=== PATIENT | female | born 1930 | race Caucasian/White ===

== ENCOUNTER 2017-06-25 18:23 | Emergency (ER) | payer MEDICARE ==
--- NOTE | 2017-06-25 18:37 | ERPHSYRPT ---
- History of Present Illness Time Seen by Provider: 06/25/17 18:25 Source: patient, family (son Josemanuel), EMS, [facility] records Physician History: CC: altered mental status hx: 86 y/o patient from [facility]. She was last normal around 4:30PM. She was going to dining [place] but had an unresponsive spell. Taken back to room. May have been weak on one side. EMS noted improvement. Pt denies pain or headache. No fall or injury. No fever or chills. Allergies/Adverse Reactions: ciclopirox [From Loprox] Allergy (Unknown, Verified 06/25/17 19:07) ciclopirox olamine [From Loprox] Allergy (Unknown, Verified 06/25/17 19:07) morphine Allergy (Unknown, Verified 06/25/17 19:07) oxycodone [Oxycodone] Allergy (Unknown, Verified 06/25/17 19:07) Sulfa (Sulfonamide Antibiotics) [Sulfa(Sulfonamide Antibiotics)] Allergy ( Unknown, Verified 06/25/17 19:07) Band-aid Allergy (Unknown, Uncoded 06/25/17 19:07) Pentazocine Lactate Allergy (Unknown, Uncoded 06/25/17 19:07) Home Medications: Acetaminophen 325 mg [Tylenol 325 mg] 650 mg PO Q4HPRN PRN 07/16/16 [ History] Aspirin 81 mg PO DAILY 07/16/16 [History] Benzonatate [Tessalon Perle] 100 mg PO Q6HPRN PRN 07/16/16 [History] Calcium Carbonate/Vitamin D3 [Calcium 600-Vit D3 200 Tablet] 1 each PO BID 07/16 [History] Cyclobenzaprine HCl [Flexeril] 5 mg PO [id number] PRN 07/16/16 [History] Dabigatran Etexilate Mesylate [Pradaxa] 75 mg PO BID 07/16/16 [History] Furosemide 40 mg [Lasix 40 MG] 40 mg PO BID 07/16/16 [History] Hydrocodone Bit/Acetaminophen [[place] 5-325 Tablet] 1 each PO HS 07/16/16 [ History] Insulin Glargine [Lantus Insulin] 52 unit SQ HS 07/16/16 [History] Insulin Lispro [Humalog] 20 unit SQ AC 07/16/16 [History] Lisinopril 10 mg [Zestril 10 MG] 10 mg PO DAILY 07/16/16 [History] Loperamide HCl 2 mg [Imodium 2 mg] 2 mg PO Q4HPRN PRN 07/16/16 [History] Lorazepam 0.5 mg [Ativan 0.5 MG] 0.5 mg PO Q6HPRN PRN 07/16/16 [History] Magnesium Oxide 400 mg [Mag-Ox 400] 400 mg PO DAILY 07/16/16 [History] Memantine HCl [Namenda Xr] 28 mg PO DAILY 07/16/16 [History] Nitroglycerin 0.4 mg Tablet [Nitrostat 0.4 MG Tablet] 0.4 mg SL Q5MIN PRN MR X 3 PRN 07/16/16 [History] Ondansetron HCl [Zofran] 4 mg PO Q6HPRN PRN 07/16/16 [History] Potassium Chloride [K-Dur] 10 meq PO DAILY 07/16/16 [History] Promethazine HCl 25 mg Amp [Phenergan 25 MG INJ] 12.5 mg IM Q6HPRN PRN [History] Propylene Glycol/Peg 400/Pf [Systane Ultra 0.4-0.3% Eye Drp] 1 each OP Q4HPRN PRN 07/16/16 [History] Simvastatin [Zocor] 10 mg PO HS 07/16/16 [History] Vit C/E/Zn/Coppr/Lutein/Zeaxan [Preservision Areds 2 Softgel] 1 each PO BID [History] Levothyroxine Sodium 100 Mcg [Synthroid 100 Mcg] 100 mcg PO DAILY 06/25/17 [History] Magnesium Hydroxide 30 ml [Milk of Magnesia 30 ml] 30 ml PO DAILY PRN PRN 06/25/17 [History] Hx Tetanus, Diphtheria Vaccination/Date Given: No Hx Influenza Vaccination/Date Given: No Hx Pneumococcal Vaccination/Date Given: No - Review of Systems Constitutional: No Fever, No Chills Respiratory: No Cough Cardiac: No Chest Pain Abdominal/Gastrointestinal: Abdominal Pain (noted here), No Vomiting Skin: No Rash Neurological: Focal Weakness, No Headache All Other Systems: Unable due to condition - Past Medical History Pertinent Past Medical History: Yes Neurological History: Alzheimer's Disease, Dementia ENT History: Cataracts, Other Cardiac History: Angina, Arrhythmia, Congestive Heart Failure, High Cholesterol , Hypertension Respiratory History: Bronchitis Endocrine Medical History: Diabetes Type II, Hypothyroidism Musculoskeletal History: Other GI Medical History: Diverticulitis, Gallbladder Disease History: No Pertinent History Psycho-Social History: Anxiety Female Reproductive Disorders: Other Other Medical History: chronic pain - Past Surgical History Past Surgical History: Yes Neuro Surgical History: No Pertinent History Cardiac: Cardiac Catheterization, Cardiac Stent Respiratory: No Pertinent History Gastrointestinal: Cholecystectomy Genitourinary: No Pertinent History Musculoskeletal: Other Female Surgical History: Hysterectomy - Social History Smoking Status: Former smoker Exposure to second hand smoke: No Alcohol Use: None Drug Use: none Patient Lives Alone: No ([facility]) Significant Family History: heart disease, diabetes - Female History Hx Now: No - Nursing Vital Signs Nursing Vital Signs: Initial Vital Signs Temperature 98.1 F 06/25/17 18:23 Pulse Rate 79 06/25/17 18:23 Respiratory Rate 20 06/25/17 18:23 Blood Pressure 141/106 06/25/17 18:23 O2 Sat by Pulse Oximetry 97 06/25/17 18:23 Pain Scale Pain Intensity 0 - Physical Exam General Appearance: alert, obese, other (pleasant lady) Eye Exam: PERRL/EOMI Ears, Nose, Throat Exam: dry mucous membranes Neck Exam: supple Respiratory Exam: diminished breath sounds Cardiovascular Exam: irregular Gastrointestinal/Abdomen Exam: soft, tenderness (left abdomen with reproducible guarding) Extremity Exam: pedal edema Neurologic Exam: alert, cooperative, other (moves all 4 extremities but appears generally weak. Face has right droop. Tongue midline.) Skin Exam: warm, dry - Course Nursing assessment & vital signs reviewed: Yes EKG Interpreted by Me: RATE (77), A-fib, NORMAL AXIS, NORMAL INTERVALS (QTc 428) , Other (Poor R wave progression) - Radiology Exams cxr X-ray Interpretation: Reviewed by me (CM) - CT Exams abd/pelvis CT Interpretation: Tele-radiologist Report (no acute, lung nodule, age indeterminant L1 compression fx) head CT Interpretation: Tele-radiologist Report (no acute findings), No/Intracranial Hemorrhag Ordered Tests: Active Orders 24 hr Category Date Time Status Cath for Specimen-Straight STAT Care 06/25/17 18:26 Active EKG-ER Only STAT Care 06/25/17 18:26 Active IV Insertion STAT Care 06/25/17 18:26 Active NPO (ED) STAT Care 06/25/17 18:26 Active Rectal Temperature STAT Care 06/25/17 18:32 Active ABDOMEN AND PELVIS W/0 CONTRAS [CT] Stat Exams 06/25/17 18:25 Taken CHEST 1 VIEW (PORTABLE) Stat Exams 06/25/17 18:26 Taken HEAD WITHOUT CONTRAST [CT] Stat Exams 06/25/17 18:25 Taken BLOOD CULTURE Stat Lab 06/25/17 19:06 Received CBC W DIFF Stat Lab 06/25/17 19:06 Completed CMP Stat Lab 06/25/17 19:06 Completed LIPASE Stat Lab 06/25/17 19:06 Completed Lactic Acid Stat Lab 06/25/17 19:10 Results PROTIME WITH INR Stat Lab 06/25/17 19:06 Completed PTT Stat Lab 06/25/17 19:06 Completed TROPONIN Q3H Lab 06/25/17 19:06 Completed TROPONIN Q3H Lab 06/25/17 21:30 Ordered TROPONIN Q3H Lab 06/26/17 00:30 Ordered TROPONIN Q3H Lab 06/26/17 03:30 Ordered TROPONIN Q3H Lab 06/26/17 06:30 Ordered UA W/ MICROSCOPIC Stat Lab 06/25/17 18:50 Completed Lab/Rad Data: Laboratory Result Diagrams 06/25/17 19:06 06/25/17 19:06 Laboratory Results 06/25/17 06/25/17 06/25/17 Range/Units 19:10 19:06 19:06 WBC (4.0-10.5) K/mm3 RBC (4.1-5.4) M/mm3 Hgb (12.0-16.0) gm/dl Hct (35-47) % MCV (78-100) fl MCH (26-32) pg MCHC (32-36) g/dl RDW (11.5-14.0) % Plt Count (150-450) K/mm3 MPV (6-9.5) fl Gran % (36.0-66.0) % Lymphocytes % (24.0-44.0) % Monocytes % (0.0-12.0) % Eosinophils % (0.00-5.0) % Basophils % (0.0-0.4) % Basophils # (0-0.4) INR 1.33 (0.8-3.0) APTT 65.5 H (25.3-37.0) SECONDS Sodium (136-145) mEq/L Potassium (3.5-5.1) mEq/L Chloride (98-107) mEq/L Carbon Dioxide (21-32) mEq/L Anion Gap (5-15) MEQ/L BUN (9-20) mg/dL Creatinine (0.55-1.30) mg/dl Estimated GFR ML/MIN Glucose (70-110) MG/DL Lactic Acid 2.4 H (0.4-2.0) Calcium (8.5-10.1) mg/dL Total Bilirubin (0.2-1.0) mg/dL AST (15-37) U/L ALT (12-78) U/L Alkaline Phosphatase (46-116) U/L Troponin I < 0.017 (0.000-0.056) ng/ml Serum Total Protein (6.4-8.2) gm/dL Albumin (3.4-5.0) g/dL Lipase (73-393) U/L Ur Collection Type Urine Color (YELLOW) Urine Appearance (CLEAR) Urine pH (5-6) Ur Specific [place] (1.005-1.025) Urine Protein (Negative) Urine Ketones (NEGATIVE) Urine Blood (0-5) Newton/ul Urine Nitrite (NEGATIVE) Urine Bilirubin (NEGATIVE) Urine Urobilinogen (0-1) mg/dL Ur Leukocyte Esterase (NEGATIVE) Urine Microscopic WBC (0-5) /HPF Urine Bacteria (NEGATIVE) /HPF Urine Glucose (NEGATIVE) mg/dL Specimen Received 06/25/17 06/25/17 06/25/17 Range/Units 19:06 19:06 18:50 WBC 8.9 (4.0-10.5) K/mm3 RBC 4.29 (4.1-5.4) M/mm3 Hgb 12.8 (12.0-16.0) gm/dl Hct 40.3 (35-47) % MCV 93.9 (78-100) fl MCH 29.8 (26-32) pg MCHC 31.8 L (32-36) g/dl RDW 15.8 H (11.5-14.0) % Plt Count 192 (150-450) K/mm3 MPV 11.5 H (6-9.5) fl Gran % 51.8 (36.0-66.0) % Lymphocytes % 32.8 (24.0-44.0) % Monocytes % 11.2 (0.0-12.0) % Eosinophils % 4.0 (0.00-5.0) % Basophils % 0.2 (0.0-0.4) % Basophils # 0.02 (0-0.4) INR (0.8-3.0) APTT (25.3-37.0) SECONDS Sodium 142 (136-145) mEq/L Potassium 4.4 (3.5-5.1) mEq/L Chloride 104 (98-107) mEq/L Carbon Dioxide 29.9 (21-32) mEq/L Anion Gap 12.6 (5-15) MEQ/L BUN 25 H (9-20) mg/dL Creatinine 1.64 H (0.55-1.30) mg/dl Estimated GFR 32 ML/MIN Glucose 83 (70-110) MG/DL Lactic Acid (0.4-2.0) Calcium 10.2 H (8.5-10.1) mg/dL Total Bilirubin 0.30 (0.2-1.0) mg/dL AST 17 (15-37) U/L ALT 16 (12-78) U/L Alkaline Phosphatase 121 H (46-116) U/L Troponin I (0.000-0.056) ng/ml Serum Total Protein 7.7 (6.4-8.2) gm/dL Albumin 3.3 L (3.4-5.0) g/dL Lipase 71 L (73-393) U/L Ur Collection Type CATH Urine Color YELLOW (YELLOW) Urine Appearance SLIGHTLY CLOUDY (CLEAR) Urine pH 7.0 (5-6) Ur Specific [place] 1.010 (1.005-1.025) Urine Protein NEGATIVE (Negative) Urine Ketones NEGATIVE (NEGATIVE) Urine Blood NEGATIVE (0-5) Newton/ul Urine Nitrite NEGATIVE (NEGATIVE) Urine Bilirubin NEGATIVE (NEGATIVE) Urine Urobilinogen NORMAL (0-1) mg/dL Ur Leukocyte Esterase 1+ (NEGATIVE) Urine Microscopic WBC 0-2 (0-5) /HPF Urine Bacteria RARE (NEGATIVE) /HPF Urine Glucose NEGATIVE (NEGATIVE) mg/dL Specimen Received 06/25/17:1850 - Progress Progress Note: 06/25/17 18:36 She has prior TIA. She is on pradaxa so not a TPA candidate. Will get CT brain to rule out ICH. Will get CT abd as she has abd tenderness. Son aware of plan. 06/25/17 20:15 Afebrile. Visiting with son. Appears to be back to baseline. CAlled Dr Dias who advised return to [place] and neuro checks and will follow there. ?TIA Discussed with .: Heriberto Counseled pt/family regarding: lab results, diagnosis, need for follow-up, rad results - Departure Time of Disposition: 20:16 Departure Disposition: Extended Care Facility Clinical Impression: Unresponsive episode, TIA (transient ischemic attack), Left sided abdominal pain Condition: Stable Critical Care Time: No Referrals: SHWETA DAMICO [Primary Care Provider] - SAL DIAS MD [ACTIVE STAFF] - Instructions: Transient Ischemic Attack Additional Instructions: Neuro checks per protocol. Call Dr Dias for further orders. Fall precautions.
[2017-06-25 19:09] LABS: ADD URINE CULTURE? NO (NO); Bilirubin NEGATIVE (NEGATIVE); Blood NEGATIVE Ery/ul (0-5); COMPLETE URINE MICROSCOPIC? YES; Collection Type CATH; Glucose NEGATIVE (NEGATIVE); Leukocyte Esterase 1+ (NEGATIVE)
[2017-06-25 19:10] LABS: Bacteria RARE /HPF (NEGATIVE); WBC 0-2 /HPF (0-5)
[2017-06-25 19:16] LABS: BASOPHIL % 0.2 % (0.0-0.4); Granulocytes % 51.8 % (36.0-66.0); Lymphocytes % 32.8 % (24.0-44.0); Mean Cell Volume 93.9 fl (78-100); Mean Corpuscular Hemoglobin 29.8 pg (26-32); Mean Platelet Volume 11.5 fl (6-9.5); Monocytes % 11.2 % (0.0-12.0); Platelet Count 192 K/mm3 (150-450); Red Blood Count 4.29 M/mm3 (4.1-5.4); Red Cell Distribution Width 15.8 % (11.5-14.0); White Blood Count 8.9 K/mm3 (4.0-10.5)
[2017-06-25 19:18] LABS: Lactic Acid 2.4 (0.4-2.0)
[2017-06-25 19:27] LABS: INR 1.33 (0.8-3.0); PROTIME 15.1 SECONDS (9.95-12.35)
[2017-06-25 19:29] LABS: PTT 65.5 SECONDS (25.3-37.0)
[2017-06-25 19:34] LABS: ALBUMIN 3.3 g/dL (3.4-5.0); ANION GAP 12.6 MEQ/L (5-15); BILIRUBIN,TOTAL 0.3 mg/dL (0.2-1.0); Carbon Dioxide 29.9 mEq/L (21-32); Potassium 4.4 mEq/L (3.5-5.1); Total Protein 7.7 gm/dL (6.4-8.2)
[2017-06-25 20:51] VITALS: PULSE 80
[2017-06-25 21:23] VITALS: BP 125/82; O2SAT 95
--- NOTE | 2017-06-26 08:54 | XRAY ---
Exam: CT of the head without IV contrast from 06/25/2017. CTDI: 61.93 Comparison: CT of the head without IV contrast from 05/18/2012. Indication: Unresponsive spell, history of TIAs. Technique: Non-IV contrast axial images were obtained through the brain. Reconstructed coronal and sagittal images were created and reviewed. Findings: Mild motion artifact is seen. However, the exam is still diagnostic. The ventricles appear within normal limits of size for the patient's age. There is moderate prominence of the cortical sulci and fissures suggesting some generalized atrophy, not inappropriate for the patient's advanced age of 86 years. There is moderate patchy subcortical and periventricular decreased attenuation consistent with chronic microvascular disease. This appears similar to the prior study. I note a subtle round low-attenuation density at the upper posterior margin of the head of the caudate nucleus on the left on axial image #24. I believe it is likely this is partially seen on axial image #22 from 05/18/2012. A definite new low attenuation infarct is not seen. No acute intracranial bleed or abnormal extra-axial fluid collection is seen. No midline shift or focal mass effect is evident. No hyperdense MCA sign is seen. There is some deviation of the anterior aspect of the nasal septum toward the left. The visualized paranasal sinuses appear unremarkable. I note a small stable calcified osteoma within the upper medial aspect of the right frontal bone representing no change. The calvarium of the skull appears intact. Dense atherosclerotic vascular calcification is seen within both carotid siphons as well as the distal vertebral arteries. The visualized mastoid air cells reveal no significant abnormality. Minimal mucosal thickening is seen at the medial margin of the right mastoid air cells on axial image #9, but this is unchanged from axial image #7 on 05/18/2012. A tiny punctate calcification is seen within the right aspect of the cerebellar tentorium representing no change. Impression: 1. Moderate generalized atrophy and chronic small vessel ischemic disease, representing no change from 05/18/2012. 2. No acute intracranial bleed or other acute intracranial findings are seen as compared to 05/18/2012.
--- NOTE | 2017-06-26 09:57 | XRAY ---
Exam: CT of the abdomen and pelvis without IV contrast from 06/25/2017. CTDI: 12.11 Comparison: None. I do have a CTA of the chest from 01/19/2006. Indication: 86-year-old female with epigastric abdominal pain and abdominal tenderness. Technique: Non-IV contrast axial images were obtained through the abdomen and pelvis without IV contrast. Reconstructed coronal and sagittal images were created and reviewed. Findings: At the lung bases I note a pleural-based oval-shaped nodular density at the posterior medial left lung base on axial image #1. Therefore, this may only be partially imaged. On image #1 it measures about 10.5 mm in width and 0.7 cm in AP depth. I would recommend a conventional CT of the chest (preferably with IV contrast) to further assess this before follow-up recommendations are given. There is also some minimal scarring versus atelectasis at the anterior medial right lung base on axial image #1. The heart size appears mildly enlarged. Some coronary artery vascular calcification is seen. The patient's arms are down by her side with jewelry on her hands and about her right wrist which result in mild artifactual streaking. Assessment of the solid organs is limited without the use of IV contrast. The liver appears of unremarkable size and shape. 2 or 3 small granulomatous calcifications are seen within the liver. No obvious mass is seen, although assessment is limited because of the lack of IV contrast and the artifactual streaking from the patient's arms being down by her side with jewelry at this level. The gallbladder is not identified and is probably surgically absent or contracted. Correlate with prior surgical history. No biliary duct distention is seen. The spleen is of normal size and reveals no mass. Calcified splenic granulomas are seen. There is some diffuse fatty infiltration within the pancreas suggesting atrophy. The adrenal glands appear unremarkable. The kidneys are slightly small with the right kidney measuring about 8.7 cm in length and the left kidney measuring about 8.8 cm in length on the sagittal images. Otherwise, no definite renal mass, suspicious renal calculi, or hydronephrosis is seen. There is no free intraperitoneal air. I note a small fat-containing umbilical hernia on axial image #52. No bowel obstruction or definite bowel wall thickening is seen. Moderate atherosclerotic vascular calcification is seen within the abdominal aorta and iliac arteries. No abdominal aortic aneurysm or abnormal retroperitoneal lymphadenopathy is seen. Extensive atherosclerotic vascular calcification is seen within the splenic artery. The appendix is not definitely seen within the right lower quadrant, but no inflammatory findings are seen to suggest appendicitis. Again, correlate with prior surgical history. I see no findings of significant diverticulosis or diverticulitis within the colon. The uterus is anteflexed. There is a prominent calcification within the left uterine myometrium measuring 2.2 cm in greatest diameter consistent with a calcified uterine fibroid. No other pelvic mass, abnormal pelvic lymphadenopathy, or free intraperitoneal fluid is seen. The ureters are identified and reveal no abnormal distention or ureterolith. No urinary bladder stone is seen. The urinary bladder is mildly distended. Vascular calcification is seen within the iliac arteries and proximal femoral arteries. There is about a 50% anterior wedge fracture deformity of L1 which does not appear to have been present on the CT exam from 01/19/2006. However, the exact age is indeterminate. Vacuum disc phenomena is seen at T12-L1. There also moderate degenerative changes within the lower thoracic vertebral interspaces. I note grade 1 anterior spondylolisthesis of L4 over L5 with moderate L4-L5 degenerative disc disease and L4 laminectomy. Impression: 1. On axial image #1, a pleural-based nodule is seen at the posterior medial left lung base which measures 10.5 mm in width and 7 mm in AP depth. This may only be partially imaged. Therefore, further evaluation with a CT of the chest (preferably with IV contrast if possible) would be suggested before a final recommendation is given. I do not see this pleural-based nodule on the CT study from 01/19/2006. Therefore, I am concerned about interval development of a pleural-based lung mass. 2. No acute process is seen within the abdomen or pelvis. Specifically, I see no findings to explain the patient's upper abdominal pain and tenderness. The gallbladder is not seen and is either surgically absent or contracted. 3. 50% anterior wedge fracture deformity of L1 is new from 2005. However, its exact age is unknown. I also see evidence of grade 1 anterolisthesis of L4 over L5 with evidence of prior L4 laminectomy and moderate degenerative disc disease at L4-L5. 4. Other incidental findings as discussed above.
--- NOTE | 2017-06-26 16:04 | XRAY ---
Exam: AP portable chest film from 1930 hrs. on 06/25/2017. Comparison: AP upright portable chest film from 07/17/2016. Indication: Unresponsive episode. Findings: The heart size is slightly enlarged representing no change. Mild tortuosity of the descending thoracic aorta is seen. A couple small granulomatous calcifications overlie the left hilum. The remainder of the miguel ángel and mediastinal structures appears unremarkable. Prior airspace infiltrate at the right lung base has resolved. Currently, the lungs are adequately expanded and appear clear. No vascular congestion, pneumothorax, or pleural fluid is seen. No acute osseous process is seen. Impression: 1. Slight cardiomegaly without evidence of acute cardiac decompensation. This is unchanged. 2. No air space infiltrates or other active lung disease is seen.
== END 2017-06-25 21:22 ==
LOC: ED 18:23
DX: G45.9 Transient cerebral ischemic attack, unspecified (principal); R10.9 Unspecified abdominal pain; Z79.01 Long term (current) use of anticoagulants; Z79.4 Long term (current) use of insulin; Z79.899 Other long term (current) drug therapy; E11.9 Type 2 diabetes mellitus without complications
CPT/HCPCS: 99284; 36000; 93005; 87040; 81000; 85610; 85730; 36415; 83690; 85025; 80053; 84484; 71010; 70450; 74176; 83605; P9612

== ENCOUNTER 2018-02-10 12:11 | Inpatient (IN) | payer MEDICARE ==
[2018-02-10] MEDS ORDERED: Sodium Chloride 0.9% 1000 ML 1,000 ML IV STA (12:19)
--- NOTE | 2018-02-10 12:27 | ERPHSYRPT ---
- History of Present Illness Time Seen by Provider: 02/10/18 12:13 Source: EMS Exam Limitations: clinical condition Physician History: Pt was sent from local intermediate, she developed fever and low blood pressure this morning. She is alert but partly oriented, not lethargic, denies any complaints, but unable to give accurate history. She is not in severe distress no sign of difficulty breathing. Timing/Duration: today Fever Severity: moderate Fever Therapy VASCULAR PHYSICIAN: none Associated Symptoms: denies symptoms Allergies/Adverse Reactions: ciclopirox [From Loprox] Allergy (Unknown, Verified 02/10/18 12:26) ciclopirox olamine [From Loprox] Allergy (Unknown, Verified 02/10/18 12:26) morphine Allergy (Unknown, Verified 02/10/18 12:26) oxycodone [Oxycodone] Allergy (Unknown, Verified 02/10/18 12:26) Sulfa (Sulfonamide Antibiotics) [Sulfa(Sulfonamide Antibiotics)] Allergy ( Unknown, Verified 02/10/18 12:26) Band-aid Allergy (Unknown, Uncoded 06/25/17 19:07) Pentazocine Lactate Allergy (Unknown, Uncoded 06/25/17 19:07) Home Medications: Acetaminophen 325 mg [Tylenol 325 mg] 650 mg PO Q4HPRN PRN 07/16/16 [ History] Aspirin 81 mg PO DAILY 07/16/16 [History] Calcium Carbonate/Vitamin D3 [Calcium 600-Vit D3 200 Tablet] 1 each PO BID 07/16 [History] Dabigatran Etexilate Mesylate [Pradaxa] 75 mg PO BID 07/16/16 [History] Furosemide 40 mg [Lasix 40 MG] 40 mg PO BID 07/16/16 [History] Hydrocodone Bit/Acetaminophen [[place] 5-325 Tablet] 1 each PO HS 07/16/16 [ History] Insulin Glargine [Lantus Insulin] 60 unit SQ HS 07/16/16 [History] Insulin Lispro [Humalog] 20 unit SQ AC 07/16/16 [History] Lisinopril 10 mg [Zestril 10 MG] 10 mg PO DAILY 07/16/16 [History] Loperamide HCl 2 mg [Imodium 2 mg] 2 mg PO Q4HPRN PRN 07/16/16 [History] Magnesium Oxide 400 mg [Mag-Ox 400] 400 mg PO DAILY 07/16/16 [History] Memantine HCl [Namenda Xr] 28 mg PO DAILY 07/16/16 [History] Nitroglycerin 0.4 mg Tablet [Nitrostat 0.4 MG Tablet] 0.4 mg SL Q5MIN PRN MR X 3 PRN 07/16/16 [History] Ondansetron HCl [Zofran] 4 mg PO Q6HPRN PRN 07/16/16 [History] Potassium Chloride [K-Dur] 10 meq PO DAILY 07/16/16 [History] Promethazine HCl 25 mg Amp [Phenergan 25 MG INJ] 12.5 mg IM Q6HPRN PRN [History] Simvastatin [Zocor] 10 mg PO HS 07/16/16 [History] Levothyroxine Sodium 100 Mcg [Synthroid 100 Mcg] 100 mcg PO DAILY 06/25/17 [History] Magnesium Hydroxide 30 ml [Milk of Magnesia 30 ml] 30 ml PO DAILY PRN PRN 06/25/17 [History] Hydrocodone Bit/Acetaminophen [Hydrocodon-Acetaminophn 10-325] 1 each PO HS [History] Melatonin/Pyridoxine HCl (B6) [Melatonin 3 mg Tablet] 1 each PO HS 02/10/18 [ History] Hx Tetanus, Diphtheria Vaccination/Date Given: No Hx Influenza Vaccination/Date Given: No Hx Pneumococcal Vaccination/Date Given: No - Review of Systems Constitutional: Fever All Other Systems: Unable due to condition - Past Medical History Pertinent Past Medical History: Yes Neurological History: Alzheimer's Disease, Dementia ENT History: Cataracts, Other Cardiac History: Angina, Arrhythmia, Congestive Heart Failure, High Cholesterol , Hypertension Respiratory History: Bronchitis Endocrine Medical History: Diabetes Type II, Hypothyroidism Musculoskeletal History: Other GI Medical History: Diverticulitis, Gallbladder Disease History: No Pertinent History Psycho-Social History: Anxiety Female Reproductive Disorders: Other Other Medical History: chronic pain - Past Surgical History Past Surgical History: Yes Neuro Surgical History: No Pertinent History Cardiac: Cardiac Catheterization, Cardiac Stent Respiratory: No Pertinent History Gastrointestinal: Cholecystectomy Genitourinary: No Pertinent History Musculoskeletal: Other Female Surgical History: Hysterectomy - Social History Smoking Status: Former smoker Exposure to second hand smoke: No Alcohol Use: None Drug Use: none Patient Lives Alone: No ([facility]) Significant Family History: heart disease, diabetes - Nursing Vital Signs Nursing Vital Signs: Initial Vital Signs Temperature 97.3 F 02/10/18 12:12 Respiratory Rate 18 02/10/18 12:12 Pain Scale Pain Intensity 8 - Physical Exam General Appearance: no apparent distress, other (dry mouth) Eye Exam: eyes nml inspection Neck Exam: normal inspection, non-tender, supple, No JVD Respiratory Exam: normal breath sounds, chest non-tender, lungs clear Cardiovascular/Chest Exam: normal heart sounds, regular rate/rhythm, normal peripheral pulses, No murmur, No JVD Gastrointestinal/Abdominal Exam: soft, non tender, no distention, no mass, no guarding Extremity Exam: non-tender, no pedal edema Neurologic Exam: alert, normal mood/affect Skin Exam: normal color, warm, dry, No rash Lymphatic: No adenopathy SpO2 Interpretation: normal Oxygen Delivery: Room Air - Course Nursing assessment & vital signs reviewed: Yes EKG Interpreted by Me: RATE (77/min), NORMAL AXIS, Other (inverted T waves V2-6 ( new from 07/17/16)) - Radiology Exams Chest X-ray Interpretation: Interpreted by me, No Pneumonia, Other (Cardiomegaly) Ordered Tests: Active Orders 24 hr Category Date Time Status Accucheck STAT Care 02/10/18 12:19 Active Cath for Specimen-Straight STAT Care 02/10/18 12:21 Active EKG-ER Only STAT Care 02/10/18 12:19 Active IV Insertion STAT Care 02/10/18 12:19 Active CHEST 1 VIEW (PORTABLE) Stat Exams 02/10/18 12:20 Taken BLOOD CULTURE Stat Lab 02/10/18 12:45 Received CBC W DIFF Stat Lab 02/10/18 12:25 Completed CMP Routine Lab 02/10/18 12:25 Completed CULTURE,URINE Stat Lab 02/10/18 12:30 Received Lactic Acid Stat Lab 02/10/18 12:19 Results NT PRO BNP Routine Lab 02/10/18 12:25 Completed PROTIME WITH INR Stat Lab 02/10/18 12:25 Completed PTT Stat Lab 02/10/18 12:25 Completed TROPONIN Q3H Lab 02/10/18 12:25 Completed TROPONIN Q3H Lab 02/10/18 15:30 Ordered TROPONIN Q3H Lab 02/10/18 18:30 Ordered TROPONIN Q3H Lab 02/10/18 21:30 Ordered TROPONIN Q3H Lab 02/11/18 00:30 Ordered UA W/ MICROSCOPIC Stat Lab 02/10/18 12:30 Completed Medication Summary Discontinued Medications Generic Name Dose Route Start Last Admin Trade Name Coleq PRN Reason Stop Dose Admin Aspirin 325 mg 02/11/18 14:07 Ecotrin 325 Mg PO 02/11/18 14:08 NOW ONE Aspirin 324 mg 02/10/18 14:21 Baby Aspirin 81 Mg Chew PO 02/10/18 14:22 STAT ONE Sodium Chloride 1,000 mls @ 999 mls/hr 02/10/18 12:19 02/10/18 12:34 Sodium Chloride 0.9% 1000 Ml IV 02/10/18 13:19 999 mls/hr .Q1H1M STA Administration Sodium Chloride Confirm 02/10/18 12:33 Sodium Chloride 0.9% 1000 Ml Administered 02/10/18 12:34 Dose 1,000 mls @ ud .ROUTE .STK-MED ONE Ceftriaxone Sodium/Dextrose 1 g in 50 mls @ 100 mls/hr 02/10/18 13:44 14:03 Rocephin 1 Gm-D5w 50 Ml Bag IV 02/10/18 14:13 100 mls/hr STAT STA Administration Ceftriaxone Sodium/Dextrose Confirm 02/10/18 14:00 Rocephin 1 Gm-D5w 50 Ml Bag Administered 02/10/18 14:01 Dose 1 g in 50 mls @ ud IV .STK-MED ONE Ondansetron HCl 4 mg 02/10/18 14:12 02/10/18 14:15 Zofran 4 Mg/2 Ml Vial IV 02/10/18 14:13 4 mg STAT ONE Administration Ondansetron HCl Confirm 02/10/18 14:14 Zofran 4 Mg/2 Ml Vial Administered 02/10/18 14:15 Dose 4 mg .ROUTE .STK-MED ONE Lab/Rad Data: Laboratory Result Diagrams 02/10/18 12:25 02/10/18 12:25 Laboratory Results 02/10/18 02/10/18 02/10/18 Range/Units 12:45 12:30 12:25 WBC (4.0-10.5) K/mm3 RBC (4.1-5.4) M/mm3 Hgb (12.0-16.0) gm/dl Hct (35-47) % MCV (78-100) fl MCH (26-32) pg MCHC (32-36) g/dl RDW (11.5-14.0) % Plt Count (150-450) K/mm3 MPV (6-9.5) fl Gran % (36.0-66.0) % Eos # (Auto) (0-0.5) Absolute Lymphs (auto) (1.0-4.6) Absolute Monos (auto) (0.0-1.3) Lymphocytes % (24.0-44.0) % Monocytes % (0.0-12.0) % Eosinophils % (0.00-5.0) % Basophils % (0.0-0.4) % Absolute Granulocytes (1.4-6.9) Basophils # (0-0.4) PT (9.95-12.35) SECONDS INR (0.8-3.0) APTT (25.3-37.0) SECONDS Sodium 143 (137-145) mmol/L Potassium 4.8 (3.5-5.1) mmol/L Chloride 105 (98-107) mmol/L Carbon Dioxide 30 (22-30) mmol/L Anion Gap 13.1 (5-15) MEQ/L BUN 23 H (7-17) mg/dL Creatinine 1.41 H (0.52-1.04) mg/dL Estimated GFR 37.6 ML/MIN Glucose 75 (74-106) mg/dL Lactic Acid (0.4-2.0) Calcium 10.2 (8.4-10.2) mg/dL Total Bilirubin 0.40 (0.2-1.3) mg/dL AST 16 (14-36) U/L ALT 8 (0-35) U/L Alkaline Phosphatase 100 (38-126) U/L Troponin I 0.043 H* (0.000-0.034) ng/mL NT-Pro-B Natriuret Pep 1250 (0-1800) pg/mL Serum Total Protein 7.4 (6.3-8.2) g/dL Albumin 3.7 (3.5-5.0) g/dL Ur Collection Type CATH Urine Color YELLOW (YELLOW) Urine Appearance CLOUDY (CLEAR) Urine pH 7.0 (5-6) Ur Specific [place] 1.005 (1.005-1.025) Urine Protein NEGATIVE (Negative) Urine Ketones TRACE (NEGATIVE) Urine Blood 5-10 (0-5) [place]/ul Urine Nitrite NEGATIVE (NEGATIVE) Urine Bilirubin NEGATIVE (NEGATIVE) Urine Urobilinogen NORMAL (0-1) mg/dL Ur Leukocyte Esterase 2+ (NEGATIVE) Urine Microscopic RBC 2-5 (0-2) /HPF Urine Microscopic WBC 25-50 (0-5) /HPF Ur Epithelial Cells MODERATE (FEW) /HPF Urine Bacteria MANY (NEGATIVE) /HPF Urine Culture Reflexed YES (NO) Urine Glucose NEGATIVE (NEGATIVE) mg/dL Influenza Type A Ag NEGATIVE (NEGATIVE) Influenza Type B Ag NEGATIVE (NEGATIVE) RSV (PCR) NEGATIVE (Negative) Specimen Received 02/10/18 1211 02/10/18 02/10/18 02/10/18 Range/Units 12:25 12:25 12:19 WBC 9.0 (4.0-10.5) K/mm3 RBC 4.60 (4.1-5.4) M/mm3 Hgb 13.3 (12.0-16.0) gm/dl Hct 42.8 (35-47) % MCV 93.0 (78-100) fl MCH 28.9 (26-32) pg MCHC 31.1 L (32-36) g/dl RDW 16.2 H (11.5-14.0) % Plt Count 226 (150-450) K/mm3 MPV 12.0 H (6-9.5) fl Gran % 58.4 (36.0-66.0) % Eos # (Auto) 0.09 (0-0.5) Absolute Lymphs (auto) 2.79 (1.0-4.6) Absolute Monos (auto) 0.85 (0.0-1.3) Lymphocytes % 31.0 (24.0-44.0) % Monocytes % 9.4 (0.0-12.0) % Eosinophils % 1.0 (0.00-5.0) % Basophils % 0.2 (0.0-0.4) % Absolute Granulocytes 5.26 (1.4-6.9) Basophils # 0.02 (0-0.4) PT 18.0 H (9.95-12.35) SECONDS INR 1.61 (0.8-3.0) APTT 67.8 H (25.3-37.0) SECONDS Sodium (137-145) mmol/L Potassium (3.5-5.1) mmol/L Chloride (98-107) mmol/L Carbon Dioxide (22-30) mmol/L Anion Gap (5-15) MEQ/L BUN (7-17) mg/dL Creatinine (0.52-1.04) mg/dL Estimated GFR ML/MIN Glucose (74-106) mg/dL Lactic Acid 2.6 H (0.4-2.0) Calcium (8.4-10.2) mg/dL Total Bilirubin (0.2-1.3) mg/dL AST (14-36) U/L ALT (0-35) U/L Alkaline Phosphatase (38-126) U/L Troponin I (0.000-0.034) ng/mL NT-Pro-B Natriuret Pep (0-1800) pg/mL Serum Total Protein (6.3-8.2) g/dL Albumin (3.5-5.0) g/dL Ur Collection Type Urine Color (YELLOW) Urine Appearance (CLEAR) Urine pH (5-6) Ur Specific [place] (1.005-1.025) Urine Protein (Negative) Urine Ketones (NEGATIVE) Urine Blood (0-5) [place]/ul Urine Nitrite (NEGATIVE) Urine Bilirubin (NEGATIVE) Urine Urobilinogen (0-1) mg/dL Ur Leukocyte Esterase (NEGATIVE) Urine Microscopic RBC (0-2) /HPF Urine Microscopic WBC (0-5) /HPF Ur Epithelial Cells (FEW) /HPF Urine Bacteria (NEGATIVE) /HPF Urine Culture Reflexed (NO) Urine Glucose (NEGATIVE) mg/dL Influenza Type A Ag (NEGATIVE) Influenza Type B Ag (NEGATIVE) RSV (PCR) (Negative) Specimen Received - Progress Progress: improved Progress Note: 02/10/18 14:31 Pt has been afebrile, blood pressure improved after iv saline, Rocephine started , patient denies chest pain, no sign of SOB or distress, she is comfortable, her troponin is border line elevated, she is DNR, discussed with Dr Prince, informed about her results and current condition, she agreed to admit her as regular admission with UTI, elevated troponin, Aspirin given in ER. I informed her son and patient, they agreed to be admitted. Discussed with .: Niki Will see patient in: hospital (full admit) - Departure Time of Disposition: 14:33 Departure Disposition: In-patient Admission Clinical Impression: Elevated troponin UTI (urinary tract infection) Qualifiers: Urinary tract infection type: acute cystitis Hematuria presence: without hematuria Qualified Code(s): N30.00 - Acute cystitis without hematuria Condition: Stable Critical Care Time: No Referrals: SHWETA DAMICO [Primary Care Provider] -
[2018-02-10] MEDS ORDERED: Sodium Chloride 0.9% 1000 ML 1,000 ML ONE (12:33)
[2018-02-10 12:40] LABS: Lactic Acid 2.6 (0.4-2.0)
[2018-02-10 13:09] LABS: BASOPHIL % 0.2 % (0.0-0.4); Basophil (Absolute #) 0.02 (0-0.4); Eosinophil (Absolute #) 0.09 (0-0.5); Granulocyte Absolute (ANC) 5.26 (1.4-6.9); Granulocytes % 58.4 % (36.0-66.0); Hematocrit 42.8 % (35-47); Hemoglobin 13.3 gm/dl (12.0-16.0); Lymphocyte (Absolute #) 2.79 (1.0-4.6); Mean Corpuscular Hemoglobin 28.9 pg (26-32); Mean Corpuscular Hgb Concent. 31.1 g/dl (32-36); Monocyte (Absolute #) 0.85 (0.0-1.3); Monocytes % 9.4 % (0.0-12.0); Platelet Count 226 K/mm3 (150-450); Red Cell Distribution Width 16.2 % (11.5-14.0)
[2018-02-10 13:27] LABS: INR 1.61 (0.8-3.0)
[2018-02-10 13:30] LABS: PTT 67.8 SECONDS (25.3-37.0)
[2018-02-10 13:32] LABS: ALBUMIN 3.7 g/dL (3.5-5.0); ANION GAP 13.1 MEQ/L (5-15); BILIRUBIN,TOTAL 0.4 mg/dL (0.2-1.3); Calcium 10.2 mg/dL (8.4-10.2); Creatinine 1 1.41 mg/dL (0.52-1.04); Potassium 4.8 mmol/L (3.5-5.1); Total Protein 7.4 g/dL (6.3-8.2)
[2018-02-10 13:38] LABS: Appearance CLOUDY (CLEAR); Bilirubin NEGATIVE (NEGATIVE); Glucose NEGATIVE (NEGATIVE); Ketones TRACE (NEGATIVE); Leukocyte Esterase 2+ (NEGATIVE); Nitrite NEGATIVE (NEGATIVE); Protein,Urine Dip NEGATIVE (Negative); Specific Gravity 1.005 (1.005-1.025); Urobilinogen NORMAL mg/dL (0-1)
[2018-02-10 13:40] LABS: Bacteria MANY /HPF (NEGATIVE); Epithelial Cells MODERATE /HPF (FEW); WBC 25-50 /HPF (0-5)
[2018-02-10] MEDS ORDERED: ROCEPHIN 1 Gm-D5w 50 ml Bag** 1 G/50 ML IVPB IV STA (13:44)
[2018-02-10 13:46] LABS: TROPONIN 0.043 ng/mL (0.000-0.034)
[2018-02-10 13:54] LABS: INFLUENZA A NEGATIVE (NEGATIVE); INFLUENZA B NEGATIVE (NEGATIVE); RESPIRATORY SYNCTIAL VIRUS NEGATIVE (Negative)
[2018-02-10] MEDS ORDERED: ROCEPHIN 1 Gm-D5w 50 ml Bag** 1 G/50 ML IVPB IV ONE (14:00)
[2018-02-10] MEDS ORDERED: Zofran 4 MG/2 ML VIAL IV ONE (14:12)
[2018-02-10] MEDS ORDERED: Zofran 4 MG/2 ML VIAL ONE (14:14)
[2018-02-10] MEDS ORDERED: BABY ASPIRIN 81 MG CHEW PO ONE (14:21)
[2018-02-10] MEDS ORDERED: Zofran 4 MG/2 ML VIAL IV PRN (14:34)
[2018-02-10] MEDS ORDERED: Sodium Chloride 0.9% 1000 ML 1,000 ML IV SCH (14:45)
[2018-02-10] MEDS ORDERED: NON-FORMULARY ITEM (Ondansetron Hcl [Zofran] 4 MG) PO PRN (16:55)
[2018-02-10] MEDS ORDERED: IMODIUM 2 MG PO PRN (16:55)
[2018-02-10] MEDS ORDERED: TYLENOL 325 MG PO PRN (16:55)
[2018-02-10] MEDS ORDERED: NON-FORMULARY ITEM (Cyclobenzaprine Hcl [Flexeril] 5 MG) PO PRN (16:55)
[2018-02-10] MEDS ORDERED: Nitrostat 0.4 MG Tablet SL PRN (16:55)
[2018-02-10] MEDS ORDERED: MILK OF MAGNESIA 30 ML PO PRN (16:55)
[2018-02-10] MEDS ORDERED: ONDANSETRON ODT PO PRN (17:06)
[2018-02-10] MEDS ORDERED: Cyclobenzaprine 10 MG PO PRN (17:09)
[2018-02-10] MEDS: Sodium Chloride 0.9% 1000 ML 1,000 ML IV SCH (17:27)
[2018-02-10] MEDS ORDERED: Zosyn 3.375GM/100 Ml D5W 3.375 GM/100 ML IVPB IV SCH (18:00)
--- NOTE | 2018-02-10 19:41 | XRAY ---
Indication: Cough. Comparison: June 25, 2017. Portable chest again demonstrates cardiomegaly and left hilar calcified nodes. Vascularity normal. Lungs inflated and clear. Bony thorax intact again with osteopenia and degenerative changes. Impression: Stable nonacute chest with chronic features.
[2018-02-10] MEDS: PRADAXA 75 MG PO SCH (20:53)
[2018-02-10] MEDS: Namenda 5 MG PO SCH (20:54)
[2018-02-10] MEDS: Zocor 10MG PO SCH (20:54)
[2018-02-10] MEDS: Norco 10/325 MG Tablet PO SCH ×3 (20:55→22:04)
[2018-02-10] MEDS ORDERED: NON-FORMULARY ITEM (Memantine Hcl [Namenda] 10 MG) PO SCH (22:00)
[2018-02-10] MEDS: Lantus Insulin SQ SCH (22:08)
[2018-02-11] MEDS: Sodium Chloride 0.9% 1000 ML 1,000 ML IV SCH ×2 (04:47→22:31)
[2018-02-11 05:54] LABS: BASOPHIL % 0.4 % (0.0-0.4); Basophil (Absolute #) 0.03 (0-0.4); Eosinophil % 2.7 % (0.00-5.0); Granulocyte Absolute (ANC) 4.63 (1.4-6.9); Granulocytes % 61.5 % (36.0-66.0); Hematocrit 37.4 % (35-47); Hemoglobin 11.5 gm/dl (12.0-16.0); Lymphocyte (Absolute #) 1.81 (1.0-4.6); Lymphocytes % 24.1 % (24.0-44.0); Mean Cell Volume 95.4 fl (78-100); Mean Corpuscular Hemoglobin 29.3 pg (26-32); Mean Corpuscular Hgb Concent. 30.7 g/dl (32-36); Mean Platelet Volume 11.8 fl (6-9.5); Monocyte (Absolute #) 0.85 (0.0-1.3); Monocytes % 11.3 % (0.0-12.0); Platelet Count 193 K/mm3 (150-450); Red Blood Count 3.92 M/mm3 (4.1-5.4); Red Cell Distribution Width 16.2 % (11.5-14.0); White Blood Count 7.5 K/mm3 (4.0-10.5)
[2018-02-11 06:13] LABS: ANION GAP 10.7 MEQ/L (5-15); Calcium 9.7 mg/dL (8.4-10.2); Creatinine 1 1.21 mg/dL (0.52-1.04); Potassium 4.3 mmol/L (3.5-5.1)
--- NOTE | 2018-02-11 08:05 | PCM.HP ---
History of Present Illness - Chief Complaint Chief Complaint: UTI History of Present Illness: is a 87 year old female from a local [facility] who was sent in for fever and confusion, she is alert and conversant today. Denies any pain, just doesn't feel well but no specific complaints. - Review of Systems Constitutional: Fever, Weakness Respiratory: No Cough, No Short Of Breath Cardiac: No Chest Pain, No Edema, No Syncope Abdominal/Gastrointestinal: No Abdominal Pain, No Nausea, No Vomiting, No Diarrhea Genitourinary Symptoms: No Dysuria Skin: No Rash Medications & Allergies Home Medications: Home Medication List Acetaminophen 325 mg [Tylenol 325 mg] 650 mg PO Q4HPRN PRN 07/16/16 [ History Confirmed 02/10/18] Aspirin 81 mg PO DAILY 07/16/16 [History Confirmed 02/10/18] Calcium Carbonate/Vitamin D3 [Calcium 600-Vit D3 200 Tablet] 1 each PO BID 07/16 [History Confirmed 02/10/18] Dabigatran Etexilate Mesylate [Pradaxa] 75 mg PO BID 07/16/16 [History Confirmed 02/10/18] Furosemide 40 mg [Lasix 40 MG] 40 mg PO BID 07/16/16 [History Confirmed ] Hydrocodone Bit/Acetaminophen [[place] 5-325 Tablet] 1 each PO HS 07/16/16 [ History Confirmed 02/10/18] Insulin Glargine [Lantus Insulin] 60 unit SQ HS 07/16/16 [History Confirmed 02/10/18] Loperamide HCl 2 mg [Imodium 2 mg] 2 mg PO Q4HPRN PRN 07/16/16 [History Confirmed 02/10/18] Magnesium Oxide 400 mg [Mag-Ox 400] 400 mg PO DAILY 07/16/16 [History Confirmed 02/10/18] Nitroglycerin 0.4 mg Tablet [Nitrostat 0.4 MG Tablet] 0.4 mg SL Q5MIN PRN MR X 3 PRN 07/16/16 [History Confirmed 02/10/18] Ondansetron HCl [Zofran] 4 mg PO Q6HPRN PRN 07/16/16 [History Confirmed 02/10/18 ] Potassium Chloride [K-Dur] 10 meq PO DAILY 07/16/16 [History Confirmed 02/10/18] Promethazine HCl 25 mg Amp [Phenergan 25 MG INJ] 12.5 mg IM Q6HPRN PRN [History Confirmed 02/10/18] Simvastatin [Zocor] 10 mg PO HS 07/16/16 [History Confirmed 02/10/18] Diltiazem HCl [Diltiazem 24Hr ER] 120 mg PO DAILY #30 cap.er.24h 07/21/16 [Rx Confirmed 02/10/18] Levothyroxine Sodium 100 Mcg [Synthroid 100 Mcg] 100 mcg PO DAILY 06/25/17 [History Confirmed 02/10/18] Magnesium Hydroxide 30 ml [Milk of Magnesia 30 ml] 30 ml PO DAILY PRN PRN 06/25/17 [History Confirmed 02/10/18] Cyclobenzaprine HCl [Flexeril] 5 mg PO Q12H PRN 02/10/18 [History Confirmed ] Hydrocodone Bit/Acetaminophen [Hydrocodon-Acetaminophn 10-325] 1 each PO HS [History Confirmed 02/10/18] Lisinopril 5 mg [Zestril 5 MG] 2.5 mg PO DAILY 02/10/18 [History Confirmed 02/10/18] Melatonin/Pyridoxine HCl (B6) [Melatonin 3 mg Tablet] 1 each PO HS 02/10/18 [ History Confirmed 02/10/18] Memantine HCl [Namenda] 10 mg PO BID 02/10/18 [History Confirmed 02/10/18] Allergies/Adverse Reactions: Allergies Allergy/AdvReac Type Severity Reaction Status Date / Time ciclopirox [From Loprox] Allergy Unknown Verified 02/10/18 16:28 ciclopirox olamine Allergy Unknown Verified 02/10/18 16:28 [From Loprox] morphine Allergy Unknown Verified 02/10/18 16:28 oxycodone [Oxycodone] Allergy Unknown Verified 02/10/18 16:28 Sulfa (Sulfonamide Allergy Unknown Verified 02/10/18 16:28 Antibiotics) [Sulfa(Sulfonamide Antibiotics)] Band-aid Allergy Unknown Uncoded 02/10/18 16:28 Pentazocine Lactate Allergy Unknown Uncoded 02/10/18 16:28 - Past Medical History Past Medical History: Yes Neurological History: Alzheimer's Disease, Dementia ENT History: Cataracts, Other Cardiac History: Angina, Arrhythmia, Congestive Heart Failure, High Cholesterol , Hypertension Respiratory History: Bronchitis Endocrine Medical History: Diabetes Type II, Hypothyroidism Musculoskelatal History: Other GI Medical History: Diverticulitis, Gallbladder Disease History: No Pertinent History Pyscho-Social History: Anxiety Reproductive Disorders: Other Comment: chronic pain - Past Surgical History Past Surgical History: Yes Neuro Surgical History: No Pertinent History Cardiac History: Cardiac Catheterization, Cardiac Stent Respiratory Surgery: No Pertinent History GI Surgical History: Cholecystectomy Genitourinary Surgical Hx: No Pertinent History Musculskeletal Surgical Hx: Other Female Surgical History: Hysterectomy - Social History Smoking Status: Never smoker Exposure to second hand smoke: No Alcohol: None Drug Use: none Significant Family History: heart disease, diabetes - Physical Exam Vital Signs: Vital Signs - 24 hr Temp Pulse Resp BP Pulse Ox 02/11/18 07:00 98.2 F 85 18 123/59 94 L 02/11/18 03:00 97.9 F 73 16 129/58 95 02/10/18 23:08 97.8 F 93 H 20 99/57 95 02/10/18 19:40 98.2 F 88 20 110/53 98 02/10/18 15:23 98.7 F 93 H 128/57 02/10/18 15:22 98.7 F 92 H 20 128/57 93 L 02/10/18 15:20 98.7 F 92 H 20 128/57 93 L 02/10/18 14:17 80 20 122/63 98 02/10/18 13:50 97.3 F 84 18 118/68 99 02/10/18 12:35 84 16 98/67 98 02/10/18 12:12 97.3 F 18 General Appearance: no apparent distress Neurologic Exam: alert Eye Exam: PERRL/EOMI, eyes nml inspection Respiratory Exam: normal breath sounds, lungs clear, No respiratory distress Cardiovascular Exam: regular rate/rhythm, normal heart sounds, normal peripheral pulses Gastrointestinal/Abdomen Exam: soft, normal bowel sounds, No tenderness, No mass Extremity Exam: normal inspection, normal range of motion, pelvis stable Skin Exam: normal color, warm, dry, No rash Results - Labs Lab/Micro Results: Accuchecks Date 02/10/18 Accucheck Value: 76 Accucheck Value: 120 Lab Results-Last 24 Hours 02/10/18 02/10/18 02/10/18 Range/Units 15:30 18:45 21:45 WBC (4.0-10.5) K/mm3 RBC (4.1-5.4) M/mm3 Hgb (12.0-16.0) gm/dl Hct (35-47) % MCV (78-100) fl MCH (26-32) pg MCHC (32-36) g/dl RDW (11.5-14.0) % Plt Count (150-450) K/mm3 MPV (6-9.5) fl Gran % (36.0-66.0) % Eos # (Auto) (0-0.5) Absolute Lymphs (auto) (1.0-4.6) Absolute Monos (auto) (0.0-1.3) Lymphocytes % (24.0-44.0) % Monocytes % (0.0-12.0) % Eosinophils % (0.00-5.0) % Basophils % (0.0-0.4) % Absolute Granulocytes (1.4-6.9) Basophils # (0-0.4) Sodium (137-145) mmol/L Potassium (3.5-5.1) mmol/L Chloride (98-107) mmol/L Carbon Dioxide (22-30) mmol/L Anion Gap (5-15) MEQ/L BUN (7-17) mg/dL Creatinine (0.52-1.04) mg/dL Estimated GFR ML/MIN Glucose (74-106) mg/dL Calcium (8.4-10.2) mg/dL Troponin I 0.049 H* 0.049 H* 0.043 H* (0.000-0.034) ng/mL 02/11/18 02/11/18 02/11/18 Range/Units 00:50 05:17 05:17 WBC 7.5 (4.0-10.5) K/mm3 RBC 3.92 L (4.1-5.4) M/mm3 Hgb 11.5 L (12.0-16.0) gm/dl Hct 37.4 (35-47) % MCV 95.4 (78-100) fl MCH 29.3 (26-32) pg MCHC 30.7 L (32-36) g/dl RDW 16.2 H (11.5-14.0) % Plt Count 193 (150-450) K/mm3 MPV 11.8 H (6-9.5) fl Gran % 61.5 (36.0-66.0) % Eos # (Auto) 0.20 (0-0.5) Absolute Lymphs (auto) 1.81 (1.0-4.6) Absolute Monos (auto) 0.85 (0.0-1.3) Lymphocytes % 24.1 (24.0-44.0) % Monocytes % 11.3 (0.0-12.0) % Eosinophils % 2.7 (0.00-5.0) % Basophils % 0.4 (0.0-0.4) % Absolute Granulocytes 4.63 (1.4-6.9) Basophils # 0.03 (0-0.4) Sodium 143 (137-145) mmol/L Potassium 4.3 (3.5-5.1) mmol/L Chloride 107 (98-107) mmol/L Carbon Dioxide 29 (22-30) mmol/L Anion Gap 10.7 (5-15) MEQ/L BUN 22 H (7-17) mg/dL Creatinine 1.21 H (0.52-1.04) mg/dL Estimated GFR 44.8 ML/MIN Glucose 87 (74-106) mg/dL Calcium 9.7 (8.4-10.2) mg/dL Troponin I 0.046 H* (0.000-0.034) ng/mL Accuchecks Date 02/10/18 Accucheck Value: 76 Accucheck Value: 120 Assessment/Plan (1) UTI (urinary tract infection) Current Visit: Yes Status: Acute Qualifiers: Urinary tract infection type: acute cystitis Hematuria presence: without hematuria Qualified Code(s): N30.00 - Acute cystitis without hematuria Assessment & Plan: on rocephin, culture pending. afebrile since admission Code(s): N39.0 - URINARY TRACT INFECTION, SITE NOT SPECIFIED (2) Elevated troponin Current Visit: Yes Status: Acute Assessment & Plan: minimally elevated, no chest pain or dyspnea. patient is SCO, likely elevated secondary to renal insufficiency Code(s): R74.8 - ABNORMAL LEVELS OF OTHER SERUM ENZYMES (3) Altered mental status Current Visit: Yes Status: Acute Assessment & Plan: secondary to UTI Code(s): R41.82 - ALTERED MENTAL STATUS, UNSPECIFIED
[2018-02-11] MEDS: Cardizem CD 120 MG PO SCH (09:28)
[2018-02-11] MEDS: SYNTHROID 100 MCG PO SCH (09:28)
[2018-02-11] MEDS: Zestril 5 MG PO SCH (09:28)
[2018-02-11] MEDS: ROCEPHIN 1 Gm-D5w 50 ml Bag** 1 G/50 ML IVPB IV SCH (09:28)
[2018-02-11] MEDS: Namenda 5 MG PO SCH ×2 (09:28→21:18)
[2018-02-11] MEDS: PRADAXA 75 MG PO SCH ×2 (09:31→21:18)
[2018-02-11] MEDS: MAG-OX 400 PO SCH (09:31)
[2018-02-11] MEDS: ECOTRIN 81 MG PO SCH (09:31)
[2018-02-11] MEDS: Klor Con 10 MEQ PO SCH (09:31)
[2018-02-11] MEDS ORDERED: NON-FORMULARY ITEM (Potassium Chloride [K-Dur] 10 MEQ) PO SCH (10:00)
[2018-02-11] MEDS ORDERED: ENOXAPARIN SODIUM SQ SCH (10:00)
[2018-02-11] MEDS ORDERED: NON-FORMULARY ITEM (Aspirin [Aspirin] 81 MG) PO SCH (10:00)
[2018-02-11] MEDS ORDERED: Ecotrin 325 MG PO ONE (14:07)
[2018-02-11] MEDS: Zocor 10MG PO SCH (21:18)
[2018-02-11] MEDS: Lantus Insulin SQ SCH (21:20)
[2018-02-11] MEDS: Norco 10/325 MG Tablet PO SCH (22:29)
[2018-02-12 05:36] LABS: BASOPHIL % 0.4 % (0.0-0.4); Basophil (Absolute #) 0.03 (0-0.4); Eosinophil (Absolute #) 0.36 (0-0.5); Granulocyte Absolute (ANC) 4.04 (1.4-6.9); Granulocytes % 56.1 % (36.0-66.0); Lymphocyte (Absolute #) 1.88 (1.0-4.6); Lymphocytes % 26.1 % (24.0-44.0); Mean Cell Volume 94.6 fl (78-100); Mean Corpuscular Hemoglobin 29.7 pg (26-32); Mean Corpuscular Hgb Concent. 31.4 g/dl (32-36); Mean Platelet Volume 11.5 fl (6-9.5); Monocyte (Absolute #) 0.89 (0.0-1.3); Monocytes % 12.4 % (0.0-12.0); Platelet Count 182 K/mm3 (150-450); Red Cell Distribution Width 15.7 % (11.5-14.0); White Blood Count 7.2 K/mm3 (4.0-10.5)
[2018-02-12 05:57] LABS: ANION GAP 13.6 MEQ/L (5-15); Calcium 9.4 mg/dL (8.4-10.2); Creatinine 1 1.12 mg/dL (0.52-1.04); Potassium 4.4 mmol/L (3.5-5.1)
[2018-02-12] MEDS ORDERED: ZOFRAN ODT 4 MG PO PRN (08:12)
--- NOTE | 2018-02-12 08:44 | PCM.NOTE ---
Date and Time: 02/12/18 0840 Subjective Assessment: Pt not feeling great this morning due to nausea. - Review of Systems Constitutional: No Fever Abdominal/Gastrointestinal: Nausea Objective Exam General Appearance: mild distress, alert Neurologic Exam: cooperative, disoriented (not oriented to place or time) Skin Exam: normal color, warm, dry, No rash Ears, Nose, Throat Exam: moist mucous membranes Respiratory Exam: normal breath sounds, lungs clear, No crackles/rales, No rhonchi, No wheezing Cardiovascular Exam: regular rate/rhythm, normal heart sounds, No murmur Extremity Exam: No pedal edema, No swelling OBJECTIVE DATA Vital Signs: Vital Signs - 24 hr Temp Pulse Resp BP Pulse Ox 02/12/18 07:31 98.1 F 79 18 136/60 97 02/12/18 07:30 98.1 F 79 18 136/60 97 02/12/18 04:00 97.7 F 77 18 143/62 93 L 02/12/18 00:00 97.8 F 85 18 108/51 95 02/11/18 22:56 97.8 F 84 20 121/57 94 L 02/11/18 19:00 97.8 F 84 20 121/57 94 L 02/11/18 15:00 98.1 F 58 L 18 119/55 95 02/11/18 11:00 98.3 F 71 18 111/56 100 Pain Assessment - Last Documented Pain Intensity 3 Pain Scale Used 0-10 Pain Scale Intake and Output: Intake & Output 02/09/18 02/10/18 02/11/18 02/12/18 11:59 11:59 11:59 11:59 Intake Total 1290 2458 Balance 1290 2458 Weight 87.2 kg Lab Results: Accuchecks Date 02/12/18 Date 02/11/18 Date 02/11/18 Date 02/11/18 Time 07:30 Time 16:20 Time 11:20 Accucheck Value: 97 Accucheck Value: 249 Accucheck Value: 186 Accucheck Value: 165 Accucheck Value: 165 Lab Results-Last 24 Hours 02/12/18 02/12/18 Range/Units 04:00 04:00 WBC 7.2 (4.0-10.5) K/mm3 RBC 3.70 L (4.1-5.4) M/mm3 Hgb 11.0 L (12.0-16.0) gm/dl Hct 35.0 (35-47) % MCV 94.6 (78-100) fl MCH 29.7 (26-32) pg MCHC 31.4 L (32-36) g/dl RDW 15.7 H (11.5-14.0) % Plt Count 182 (150-450) K/mm3 MPV 11.5 H (6-9.5) fl Gran % 56.1 (36.0-66.0) % Eos # (Auto) 0.36 (0-0.5) Absolute Lymphs (auto) 1.88 (1.0-4.6) Absolute Monos (auto) 0.89 (0.0-1.3) Lymphocytes % 26.1 (24.0-44.0) % Monocytes % 12.4 H (0.0-12.0) % Eosinophils % 5.0 (0.00-5.0) % Basophils % 0.4 (0.0-0.4) % Absolute Granulocytes 4.04 (1.4-6.9) Basophils # 0.03 (0-0.4) Sodium 139 (137-145) mmol/L Potassium 4.4 (3.5-5.1) mmol/L Chloride 105 (98-107) mmol/L Carbon Dioxide 24 (22-30) mmol/L Anion Gap 13.6 (5-15) MEQ/L BUN 20 H (7-17) mg/dL Creatinine 1.12 H (0.52-1.04) mg/dL Estimated GFR 49.0 ML/MIN Glucose 129 H (74-106) mg/dL Calcium 9.4 (8.4-10.2) mg/dL Multi-Disciplinary Progress Notes: Multi-Disciplinary Progress Notes 02/11/18 10:20 Pharmacy Note by Marcellus Rosales Will discontinue Lovenox 40mg, patient has home med of Pradaxa. Initialized on 02/11/18 10:20 - END OF NOTE 02/11/18 09:30 (created 02/11/18 10:43) Case Management Note by Rose Cooper BELLY DANCER RESIDENT OF [facility]. DISCHARGE PLAN REVIEWED, PT/SON PLAN FOR PT TO RETURN TO [place] ON DISCHARGE. NO ADDNL NEEDS NOTED AT PRESENT. WILL FOLLOW. Initialized on 02/11/18 10:43 - END OF NOTE Assessment/Plan (1) UTI (urinary tract infection) Current Visit: Yes Status: Acute Onset Date: ~02/11/18 Qualifiers: Urinary tract infection type: acute cystitis Hematuria presence: without hematuria Qualified Code(s): N30.00 - Acute cystitis without hematuria Assessment & Plan: Still disoriented, will have RN give zofran for nausea. on IV rocephin, urine culture shows Providencia stuartii, is susceptible. Code(s): N39.0 - URINARY TRACT INFECTION, SITE NOT SPECIFIED (2) Altered mental status Current Visit: Yes Status: Acute Onset Date: ~02/11/18 Qualifiers: Altered mental status type: disorientation Qualified Code(s): R41.0 - Disorientation, unspecified Code(s): R41.82 - ALTERED MENTAL STATUS, UNSPECIFIED
[2018-02-12] MEDS: PRADAXA 75 MG PO SCH ×2 (09:17→22:10)
[2018-02-12] MEDS: Namenda 5 MG PO SCH ×2 (09:17→22:10)
[2018-02-12] MEDS: MAG-OX 400 PO SCH (09:17)
[2018-02-12] MEDS: ROCEPHIN 1 Gm-D5w 50 ml Bag** 1 G/50 ML IVPB IV SCH (09:17)
[2018-02-12] MEDS: Cardizem CD 120 MG PO SCH (09:17)
[2018-02-12] MEDS: Klor Con 10 MEQ PO SCH (09:18)
[2018-02-12] MEDS: SYNTHROID 100 MCG PO SCH (09:18)
[2018-02-12] MEDS: Zestril 5 MG PO SCH (09:18)
[2018-02-12] MEDS: ECOTRIN 81 MG PO SCH (09:18)
[2018-02-12] MEDS: Sodium Chloride 0.9% 1000 ML 1,000 ML IV SCH (20:12)
[2018-02-12] MEDS: Lantus Insulin SQ SCH (22:09)
[2018-02-12] MEDS: Norco 10/325 MG Tablet PO SCH (22:09)
[2018-02-12] MEDS: Zocor 10MG PO SCH (22:10)
[2018-02-13 05:54] LABS: BASOPHIL % 0.4 % (0.0-0.4); Basophil (Absolute #) 0.03 (0-0.4); Eosinophil % 3.2 % (0.00-5.0); Eosinophil (Absolute #) 0.23 (0-0.5); Granulocyte Absolute (ANC) 4.56 (1.4-6.9); Granulocytes % 62.6 % (36.0-66.0); Hemoglobin 10.5 gm/dl (12.0-16.0); Lymphocyte (Absolute #) 1.61 (1.0-4.6); Lymphocytes % 22.1 % (24.0-44.0); Mean Cell Volume 95.5 fl (78-100); Mean Corpuscular Hgb Concent. 30.9 g/dl (32-36); Mean Platelet Volume 12.1 fl (6-9.5); Monocyte (Absolute #) 0.85 (0.0-1.3); Monocytes % 11.7 % (0.0-12.0); Platelet Count 172 K/mm3 (150-450); Red Blood Count 3.56 M/mm3 (4.1-5.4); White Blood Count 7.3 K/mm3 (4.0-10.5)
[2018-02-13 05:59] LABS: Mean Corpuscular Hemoglobin 29.4 pg (26-32)
[2018-02-13 06:16] LABS: ANION GAP 13.7 MEQ/L (5-15); Calcium 9.6 mg/dL (8.4-10.2); Creatinine 1 1.16 mg/dL (0.52-1.04); Potassium 5.1 mmol/L (3.5-5.1)
[2018-02-13 07:35] VITALS: BP 122/57; PULSE 76; O2SAT 98
--- NOTE | 2018-02-13 09:04 | PCM.DS ---
Discharge Summary Date of Admission: 02/10/18 15:00 Admitting Physician: SHANNAN TRONCOSO Primary Care Provider: PEREZ Allergies Allergies ciclopirox [From Loprox] Allergy (Unknown, Verified 02/10/18 16:28) ciclopirox olamine [From Loprox] Allergy (Unknown, Verified 02/10/18 16:28) morphine Allergy (Unknown, Verified 02/10/18 16:28) oxycodone [Oxycodone] Allergy (Unknown, Verified 02/10/18 16:28) Sulfa (Sulfonamide Antibiotics) [Sulfa(Sulfonamide Antibiotics)] Allergy ( Unknown, Verified 02/10/18 16:28) Band-aid Allergy (Unknown, Uncoded 02/10/18 16:28) Pentazocine Lactate Allergy (Unknown, Uncoded 02/10/18 16:28) Hospital Summary - Hospital Course Hospital Course: patient was sent to ER from [facility] for fever and hypotension, she was confused but has some baseline dementia. found to have UTI, has been afebrile and vitals are good. she feels better at time of discharge, tolerating po intake and seems to be at her baseline cognitively - Vitals & Intake/Output Vital Signs: Vital Signs Temperature 98.6 F 02/13/18 07:34 Pulse Rate 76 02/13/18 07:34 Respiratory Rate 18 02/13/18 07:34 Blood Pressure 122/57 02/13/18 07:34 O2 Sat by Pulse Oximetry 98 02/13/18 07:34 Intake & Output: Intake & Output 02/10/18 02/11/18 02/12/18 02/13/18 11:59 11:59 11:59 11:59 Intake Total 1290 2638 1642 Balance 1290 2638 1642 Weight 87.2 kg 87.2 kg - Lab Result Diagrams: 02/13/18 05:30 02/13/18 05:30 Lab Results-Last 24 Hrs: Accuchecks Date 02/13/18 Date 02/12/18 Date 02/12/18 Date 02/12/18 Time 07:30 Time 17:18 Time 12:23 Accucheck Value: 157 Accucheck Value: 266 Accucheck Value: 172 Accucheck Value: 129 Lab Results-Last 24 Hours 02/13/18 02/13/18 Range/Units 05:30 05:30 WBC 7.3 (4.0-10.5) K/mm3 RBC 3.56 L (4.1-5.4) M/mm3 Hgb 10.5 L (12.0-16.0) gm/dl Hct 34.0 L (35-47) % MCV 95.5 (78-100) fl MCH 29.4 (26-32) pg MCHC 30.9 L (32-36) g/dl RDW 16.0 H (11.5-14.0) % Plt Count 172 (150-450) K/mm3 MPV 12.1 H (6-9.5) fl Gran % 62.6 (36.0-66.0) % Eos # (Auto) 0.23 (0-0.5) Absolute Lymphs (auto) 1.61 (1.0-4.6) Absolute Monos (auto) 0.85 (0.0-1.3) Lymphocytes % 22.1 L (24.0-44.0) % Monocytes % 11.7 (0.0-12.0) % Eosinophils % 3.2 (0.00-5.0) % Basophils % 0.4 (0.0-0.4) % Absolute Granulocytes 4.56 (1.4-6.9) Basophils # 0.03 (0-0.4) Sodium 139 (137-145) mmol/L Potassium 5.1 (3.5-5.1) mmol/L Chloride 105 (98-107) mmol/L Carbon Dioxide 26 (22-30) mmol/L Anion Gap 13.7 (5-15) MEQ/L BUN 19 H (7-17) mg/dL Creatinine 1.16 H (0.52-1.04) mg/dL Estimated GFR 47.1 ML/MIN Glucose 208 H (74-106) mg/dL Calcium 9.6 (8.4-10.2) mg/dL Micro Results-Entire Visit: Accuchecks Date 02/13/18 Date 02/12/18 Date 02/12/18 Date 02/12/18 Time 07:30 Time 17:18 Time 12:23 Accucheck Value: 157 Accucheck Value: 266 Accucheck Value: 172 Accucheck Value: 129 - Procedures and Test Procedures and Tests throughout Hospitalization: Therapy Orders & Screens 02/10/18 15:58 OT Screen per Nursing Assess ONCE Comment: Protocol Order Physician Instructions: Greater than 3 points order OT Admission Screening Reason For Exam: Triggered on Admission Diagnosis: UTI Open Wound/Cellutlitis/Pressure Ulcers: No Acute Fx/ORIF/Change in wt bearing status: No Severe MUSCULOSKELETAL pain: No ADL Dysfunction: Yes Acute CVA w/Hemiparesis/Hemiplegia: No Decreased Functional Mobility/Strength: Yes Sprain/Strain: No Acute Post-op Mobility Dysfunction: No Total Points: 4 PT Screen per Nursing Assess ONCE Comment: Protocol Order Physician Instructions: Greater than 3 points order PT Admission Screenin Reason For Exam: Triggered on Admission Diagnosis: UTI Open Wound/Cellutlitis/Pressure Ulcers: No Acute Fx/ORIF/Change in wt bearing status: No Severe MUSCULOSKELETAL pain: No ADL Dysfunction: Yes Acute CVA w/Hemiparesis/Hemiplegia: No Decreased Functional Mobility/Strength: Yes Sprain/Strain: No Acute Post-op Mobility Dysfunction: No Total Points: 4 Discharge Exam General Appearance: no apparent distress, alert Neurologic Exam: alert, cooperative Skin Exam: normal color, warm, dry Eye Exam: PERRL, EOMI, eyes nml inspection Respiratory Exam: normal breath sounds, lungs clear, No respiratory distress Cardiovascular Exam: regular rate/rhythm, normal heart sounds Gastrointestinal/Abdomen Exam: soft, No tenderness, No mass Extremity Exam: normal inspection, normal range of motion Final Diagnosis/Problem List - Final Discharge Diagnosis/Problem (1) UTI (urinary tract infection) Current Visit: Yes Status: Acute Onset Date: ~02/11/18 Assessment & Plan: will continue rocephin to complete a 7 days course (2) Elevated troponin Current Visit: Yes Status: Acute Onset Date: ~02/11/18 (3) Altered mental status Current Visit: Yes Status: Acute Onset Date: ~02/11/18 - Discharge Disposition: Skilled Care @ [facility] Condition: Stable Prescriptions: New Ceftriaxone 1 GM/50 ML PREMIX* [ROCEPHIN 1 Gm-D5w 50 ml Bag] 1 g IV Q24H10 #3 ivpb Continue Dabigatran Etexilate Mesylate [Pradaxa] 75 mg PO BID Furosemide 40 mg [Lasix 40 MG] 40 mg PO BID Calcium Carbonate/Vitamin D3 [Calcium 600-Vit D3 200 Tablet] 1 each PO BID Simvastatin [Zocor] 10 mg PO HS Hydrocodone Bit/Acetaminophen [[place] 5-325 Tablet] 1 each PO HS Potassium Chloride [K-Dur] 10 meq PO DAILY Magnesium Oxide 400 mg [Mag-Ox 400] 400 mg PO DAILY Aspirin 81 mg PO DAILY Insulin Glargine [Lantus Insulin] 60 unit SQ HS Promethazine HCl 25 mg Amp [Phenergan 25 MG INJ] 12.5 mg IM Q6HPRN PRN PRN Reason: Nausea/Vomiting Nitroglycerin 0.4 mg Tablet [Nitrostat 0.4 MG Tablet] 0.4 mg SL Q5MIN PRN MR X 3 PRN PRN Reason: Chest Pain Loperamide HCl 2 mg [Imodium 2 mg] 2 mg PO Q4HPRN PRN PRN Reason: Diarrhea Acetaminophen 325 mg [Tylenol 325 mg] 650 mg PO Q4HPRN PRN PRN Reason: Pain And/Or Fever Ondansetron HCl [Zofran] 4 mg PO Q6HPRN PRN PRN Reason: Nausea Diltiazem HCl [Diltiazem 24Hr ER] 120 mg PO DAILY #30 cap.er.24h Levothyroxine Sodium 100 Mcg [Synthroid 100 Mcg] 100 mcg PO DAILY Magnesium Hydroxide 30 ml [Milk of Magnesia 30 ml] 30 ml PO DAILY PRN PRN PRN Reason: Constipation Melatonin/Pyridoxine HCl (B6) [Melatonin 3 mg Tablet] 1 each PO HS Hydrocodone Bit/Acetaminophen [Hydrocodon-Acetaminophn 10-325] 1 each PO HS Memantine HCl [Namenda] 10 mg PO BID Lisinopril 5 mg [Zestril 5 MG] 2.5 mg PO DAILY Cyclobenzaprine HCl [Flexeril] 5 mg PO Q12H PRN PRN Reason: Pain Follow up with: SHWETA DAMICO [Primary Care Provider] - 1 Week SAL DIAS MD [Family Provider] - 1 Week
[2018-02-13] MEDS: ROCEPHIN 1 Gm-D5w 50 ml Bag** 1 G/50 ML IVPB IV SCH (09:05)
[2018-02-13] MEDS: SYNTHROID 100 MCG PO SCH (09:05)
[2018-02-13] MEDS: Zestril 5 MG PO SCH (09:05)
[2018-02-13] MEDS: Klor Con 10 MEQ PO SCH (09:05)
[2018-02-13] MEDS: Cardizem CD 120 MG PO SCH (09:05)
[2018-02-13] MEDS: PRADAXA 75 MG PO SCH (09:05)
[2018-02-13] MEDS: MAG-OX 400 PO SCH (09:06)
[2018-02-13] MEDS: Namenda 5 MG PO SCH (09:06)
[2018-02-13] MEDS: ECOTRIN 81 MG PO SCH (09:06)
== END 2018-02-13 11:15 | DRG 690 ==
LOC: ED 12:11 → MED SURG 15:00
PROVIDERS: ADMIT Family Medicine; ATTEND Family Medicine
DX: N39.0 Urinary tract infection, site not specified (principal); R79.89 Other specified abnormal findings of blood chemistry; R41.82 Altered mental status, unspecified; N30.00 Acute cystitis without hematuria; G30.9 Alzheimer's disease, unspecified; F02.80 Dementia in other diseases classified elsewhere, unspecified severity, without behavioral disturbance, psychotic disturbance, mood disturbance, and anxiety; I50.9 Heart failure, unspecified; I10 Essential (primary) hypertension; E78.00 Pure hypercholesterolemia, unspecified; E11.9 Type 2 diabetes mellitus without complications; Z79.4 Long term (current) use of insulin; E03.9 Hypothyroidism, unspecified; F41.9 Anxiety disorder, unspecified; Z87.891 Personal history of nicotine dependence; Z79.01 Long term (current) use of anticoagulants; Z79.899 Other long term (current) drug therapy
CPT/HCPCS: 36000; 36415; 71045; 80048; 80053; 81000; 82962; 83605; 83880; 84484; 85025; 85610; 85730; 87040; 87077; 87086; 87186; 87631; 93005; 96360; 96365; 96375; 99285; P9612; 96374; J0696; J1650; J2405; Q0162; A9270-GY

== ENCOUNTER 2019-02-25 12:36 | Observation (INO) | payer MEDICARE ==
[2019-02-25] MEDS ORDERED: Sodium Chloride 0.9% 1000 ML 1,000 ML ONE (12:48)
--- NOTE | 2019-02-25 12:48 | ERPHSYRPT ---
- History of Present Illness Time Seen by Provider: 02/25/19 12:45 Source: patient Physician History: [facility] pt w/ constant right facial droop and right side weakness today at 12:30pm found, last seen normal at 9am, no injury, poor historian Allergies/Adverse Reactions: ciclopirox [From Loprox] Allergy (Unknown, Verified 02/10/18 16:28) ciclopirox olamine [From Loprox] Allergy (Unknown, Verified 02/10/18 16:28) morphine Allergy (Unknown, Verified 02/10/18 16:28) oxycodone [Oxycodone] Allergy (Unknown, Verified 02/10/18 16:28) Sulfa (Sulfonamide Antibiotics) [Sulfa(Sulfonamide Antibiotics)] Allergy ( Unknown, Verified 02/10/18 16:28) Band-aid Allergy (Unknown, Uncoded 02/10/18 16:28) Pentazocine Lactate Allergy (Unknown, Uncoded 02/10/18 16:28) Home Medications: Acetaminophen 325 mg [Tylenol 325 mg] 650 mg PO Q4HPRN PRN 07/16/16 [ History] Aspirin 81 mg PO DAILY 07/16/16 [History] Calcium Carbonate/Vitamin D3 [Calcium 600-Vit D3 200 Tablet] 1 each PO BID 07/16 [History] Dabigatran Etexilate Mesylate [Pradaxa] 75 mg PO BID 07/16/16 [History] Furosemide 40 mg [Lasix 40 MG] 40 mg PO BID 07/16/16 [History] Hydrocodone Bit/Acetaminophen [[place] 5-325 Tablet] 1 each PO HS 07/16/16 [ History] Insulin Glargine [Lantus Insulin] 60 unit SQ HS 07/16/16 [History] Loperamide HCl 2 mg [Imodium 2 mg] 2 mg PO Q4HPRN PRN 07/16/16 [History] Magnesium Oxide 400 mg [Mag-Ox 400] 400 mg PO DAILY 07/16/16 [History] Nitroglycerin 0.4 mg Tablet [Nitrostat 0.4 MG Tablet] 0.4 mg SL Q5MIN PRN MR X 3 PRN 07/16/16 [History] Ondansetron HCl [Zofran] 4 mg PO Q6HPRN PRN 07/16/16 [History] Potassium Chloride [K-Dur] 10 meq PO DAILY 07/16/16 [History] Promethazine HCl 25 mg Amp [Phenergan 25 MG INJ] 12.5 mg IM Q6HPRN PRN [History] Simvastatin [Zocor] 10 mg PO HS 07/16/16 [History] Levothyroxine Sodium 100 Mcg [Synthroid 100 Mcg] 100 mcg PO DAILY 06/25/17 [History] Magnesium Hydroxide 30 ml [Milk of Magnesia 30 ml] 30 ml PO DAILY PRN PRN 06/25/17 [History] Cyclobenzaprine HCl [Flexeril] 5 mg PO Q12H PRN 02/10/18 [History] Hydrocodone Bit/Acetaminophen [Hydrocodon-Acetaminophn 10-325] 1 each PO HS [History] Lisinopril 5 mg [Zestril 5 MG] 2.5 mg PO DAILY 02/10/18 [History] Melatonin/Pyridoxine HCl (B6) [Melatonin 3 mg Tablet] 1 each PO HS 02/10/18 [ History] Memantine HCl [Namenda] 10 mg PO BID 02/10/18 [History] Hx Tetanus, Diphtheria Vaccination/Date Given: No Hx Influenza Vaccination/Date Given: No Hx Pneumococcal Vaccination/Date Given: No - Review of Systems Constitutional: No Fever Eyes: No Eye Redness Ears, Nose, & Throat: No Epistaxis Respiratory: No Dyspnea Cardiac: No Chest Pain Abdominal/Gastrointestinal: No Abdominal Pain Genitourinary Symptoms: No Incontinence Musculoskeletal: No Back Pain, No Neck Pain Skin: No Rash Neurological: Focal Weakness, No Headache - Past Medical History Pertinent Past Medical History: Yes Neurological History: Alzheimer's Disease, Dementia ENT History: Cataracts, Other Cardiac History: Angina, Arrhythmia, Congestive Heart Failure, High Cholesterol , Hypertension Respiratory History: Bronchitis Endocrine Medical History: Diabetes Type II, Hypothyroidism Musculoskeletal History: Other GI Medical History: Diverticulitis, Gallbladder Disease History: No Pertinent History Psycho-Social History: Anxiety Female Reproductive Disorders: Other Other Medical History: chronic pain - Past Surgical History Past Surgical History: Yes Neuro Surgical History: No Pertinent History Cardiac: Cardiac Catheterization, Cardiac Stent Respiratory: No Pertinent History Gastrointestinal: Cholecystectomy Genitourinary: No Pertinent History Musculoskeletal: Other Female Surgical History: Hysterectomy - Social History Smoking Status: Never smoker Exposure to second hand smoke: No Alcohol Use: None Drug Use: none Patient Lives Alone: No ([facility]) Significant Family History: heart disease, diabetes - Nursing Vital Signs Nursing Vital Signs: Initial Vital Signs Temperature 98.0 F 02/25/19 12:37 Pulse Rate 82 02/25/19 12:37 Respiratory Rate 16 02/25/19 12:37 Blood Pressure 155/75 02/25/19 12:37 O2 Sat by Pulse Oximetry 100 02/25/19 12:37 Pain Scale Pain Intensity 0 - Physical Exam General Appearance: no apparent distress Eye Exam: PERRL/EOMI, eyes nml inspection Ears, Nose, Throat Exam: moist mucous membranes Neck Exam: No meningismus Respiratory Exam: lungs clear, No respiratory distress Cardiovascular Exam: regular rate/rhythm Gastrointestinal/Abdomen Exam: soft, No tenderness Extremity Exam: No contusions Neurologic Exam: alert, cooperative, normal mood/affect, other (decreased right griip, right facial droop) Skin Exam: warm, dry - Course Nursing assessment & vital signs reviewed: Yes EKG Interpreted by Me: Sinus Rhythm, Other (no stemi) - Radiology Exams Chest X-ray Interpretation: Discussed w/ radiologist, Negative - CT Exams Head CT Interpretation: Negative, Discussed w/radiologist Ordered Tests: Active Orders 24 hr Category Date Time Status Nanotechnology Engineering Technologist STAT Care 02/25/19 12:43 Active Catheter-[place] Desir STAT Care 02/25/19 12:42 Active EKG-ER Only STAT Care 02/25/19 12:42 Active IV Insertion STAT Care 02/25/19 12:42 Active NPO (ED) STAT Care 02/25/19 12:43 Active CHEST 1 VIEW (PORTABLE) Stat Exams 02/25/19 12:43 Completed HEAD WITHOUT CONTRAST [CT] Stat Exams 02/25/19 12:43 Completed CBC W DIFF Stat Lab 02/25/19 13:00 Completed CMP Stat Lab 02/25/19 13:00 Completed PROTIME WITH INR Stat Lab 02/25/19 13:00 Completed PTT Stat Lab 02/25/19 13:00 Completed Transfer Order Routine Transfer 02/25/19 Ordered Medication Summary Discontinued Medications Generic Name Dose Route Start Last Admin Trade Name Krystina PRN Reason Stop Dose Admin Aspirin 324 mg 02/25/19 14:31 Baby Aspirin 81 Mg Chew PO 02/25/19 14:32 STAT ONE Sodium Chloride 1,000 mls @ 999 mls/hr 02/25/19 12:42 02/25/19 14:09 Sodium Chloride 0.9% 1000 Ml IV 02/25/19 13:42 Not Given .Q1H1M STA Sodium Chloride Confirm 02/25/19 12:48 Sodium Chloride 0.9% 1000 Ml Administered 02/25/19 12:49 Dose 1,000 mls @ ud .ROUTE .STK-MED ONE Lab/Rad Data: Laboratory Result Diagrams 02/25/19 13:00 02/25/19 13:00 Laboratory Results 02/25/19 02/25/19 02/25/19 Range/Units 13:00 13:00 13:00 WBC 9.6 (4.0-10.5) K/mm3 RBC 4.06 L (4.1-5.4) M/mm3 Hgb 12.0 (12.0-16.0) gm/dl Hct 38.3 (35-47) % MCV 94.3 (78-100) fl MCH 29.5 (26-32) pg MCHC 31.3 L (32-36) g/dl RDW 16.6 H (11.5-14.0) % Plt Count 196 (150-450) K/mm3 MPV 11.7 H (6-9.5) fl Gran % 66.5 H (36.0-66.0) % Eos # (Auto) 0.21 (0-0.5) Absolute Lymphs (auto) 2.25 (1.0-4.6) Absolute Monos (auto) 0.73 (0.0-1.3) Lymphocytes % 23.4 L (24.0-44.0) % Monocytes % 7.6 (0.0-12.0) % Eosinophils % 2.2 (0.00-5.0) % Basophils % 0.3 (0.0-0.4) % Absolute Granulocytes 6.41 (1.4-6.9) Basophils # 0.03 (0-0.4) PT 21.7 H (9.95-12.35) SECONDS INR 1.85 (0.8-3.0) APTT 41.5 H (25.3-37.0) SECONDS Sodium 141 (137-145) mmol/L Potassium 4.2 (3.5-5.1) mmol/L Chloride 101 (98-107) mmol/L Carbon Dioxide 31 H (22-30) mmol/L Anion Gap 13.9 (5-15) MEQ/L BUN 28 H (7-17) mg/dL Creatinine 1.26 H (0.52-1.04) mg/dL Estimated GFR 42.7 ML/MIN Glucose 124 H (74-106) mg/dL Calcium 10.3 H (8.4-10.2) mg/dL Total Bilirubin 0.30 (0.2-1.3) mg/dL AST 20 (14-36) U/L ALT 13 (0-35) U/L Alkaline Phosphatase 95 (38-126) U/L Serum Total Protein 8.0 (6.3-8.2) g/dL Albumin 4.0 (3.5-5.0) g/dL - Progress Progress: improved Progress Note: 02/25/19 14:34 d/w teleneurology Dr Larson, rec aspirin, mri, admission, admit d/w Dr Prince Discussed with : Niki Will see patient in: hospital (observation) Counseled pt/family regarding: lab results, diagnosis, rad results - Departure Departure Disposition: Observation Clinical Impression: TIA (transient ischemic attack) Condition: Stable Critical Care Time: No Referrals: SHWETA DAMICO [Primary Care Provider] - Instructions: Transient Ischemic Attack (DC)
[2019-02-25] MEDS: Sodium Chloride 0.9% 1000 ML 1,000 ML IV STA ×2 (12:52→14:09)
--- NOTE | 2019-02-25 13:06 | XRAY ---
Indication: Acute CVA. Comparison: February 10, 2019. Portable apical lordotic chest remains clear. Heart is not enlarged for AP portable technique. Bony thorax intact again with osteopenia, degenerative changes, and scoliosis. Impression: Stable nonacute chest with chronic features.
--- NOTE | 2019-02-25 13:10 | XRAY ---
Indication: Acute CVA. Multiple contiguous axial images obtained through the head without contrast. Comparison: June 25, 2017. Stable age-appropriate global atrophy, moderate periventricular degenerative micro-ischemia bilaterally, and remote right thalamic lacunar infarct. No acute intracranial hemorrhage, abnormal extra-axial fluid collection, or mass effect. Fourth ventricle is midline without hydrocephalus. 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 There is now partial opacification of inferior left mastoid air cells. Visualized paranasal sinuses and right mastoid air cells are clear. Impression: 1. Stable nonacute senile brain and remote right thalamic lacunar infarct. Follow-up CT or MRI may yield further information if there remains further clinical concern. 2. New partial opacification of the left mastoid air cells presumed inflammatory. CT DI 66.59
[2019-02-25 13:34] LABS: BASOPHIL % 0.3 % (0.0-0.4); Basophil (Absolute #) 0.03 (0-0.4); Eosinophil % 2.2 % (0.00-5.0); Eosinophil (Absolute #) 0.21 (0-0.5); Granulocyte Absolute (ANC) 6.41 (1.4-6.9); Granulocytes % 66.5 % (36.0-66.0); Hematocrit 38.3 % (35-47); Lymphocyte (Absolute #) 2.25 (1.0-4.6); Lymphocytes % 23.4 % (24.0-44.0); Mean Cell Volume 94.3 fl (78-100); Mean Corpuscular Hgb Concent. 31.3 g/dl (32-36); Mean Platelet Volume 11.7 fl (6-9.5); Monocyte (Absolute #) 0.73 (0.0-1.3); Monocytes % 7.6 % (0.0-12.0); Platelet Count 196 K/mm3 (150-450); Red Blood Count 4.06 M/mm3 (4.1-5.4); Red Cell Distribution Width 16.6 % (11.5-14.0); White Blood Count 9.6 K/mm3 (4.0-10.5)
[2019-02-25 13:37] LABS: INR 1.85 (0.8-3.0); PROTIME 21.7 SECONDS (9.95-12.35)
[2019-02-25 13:39] LABS: PTT 41.5 SECONDS (25.3-37.0)
[2019-02-25 13:41] LABS: ANION GAP 13.9 MEQ/L (5-15); BILIRUBIN,TOTAL 0.3 mg/dL (0.2-1.3); Calcium 10.3 mg/dL (8.4-10.2); Creatinine 1 1.26 mg/dL (0.52-1.04); Potassium 4.2 mmol/L (3.5-5.1)
[2019-02-25 13:42] LABS: Mean Corpuscular Hemoglobin 29.5 pg (26-32)
[2019-02-25] MEDS ORDERED: BABY ASPIRIN 81 MG CHEW PO ONE (14:31)
[2019-02-25] MEDS: Lasix 40 MG PO SCH (17:50)
[2019-02-25] MEDS ORDERED: Zocor 10MG PO SCH (22:00)
[2019-02-25] MEDS ORDERED: Lantus Insulin SQ SCH (22:00)
[2019-02-25] MEDS ORDERED: NORCO 5/325 MG PO SCH (22:00)
[2019-02-25] MEDS: Sodium Chloride 0.9% 1000 ML 1,000 ML IV SCH ×2 (22:37→22:38)
--- NOTE | 2019-02-26 08:25 | PCM.SSS ---
History of Present Illness - Chief Complaint Chief Complaint: tia History of Present Illness: is a 88 year old female from [place] who apparently had a facial droop and right sided weakness yesterday morning, she is wheelchair bound and an SCO. This morning she tells me that she had a "bad morning" yesterday, she is unable to elaborate any further on symptoms. Her speech is slightly slow but no obvious droop or focal neurological deficitis, appears to be near her baseline at this time. - Review of Systems Constitutional: No Fever, No Chills Respiratory: No Symptoms Cardiac: No Chest Pain, No Edema, No Syncope Abdominal/Gastrointestinal: No Abdominal Pain, No Nausea, No Vomiting, No Diarrhea Neurological: Focal Weakness, Speech Changes All Other Systems: Reviewed and Negative Medications & Allergies Home Medications: Home Medication List Acetaminophen 325 mg [Tylenol 325 mg] 650 mg PO Q4HPRN PRN 07/16/16 [ History Confirmed 02/25/19] Aspirin 81 mg PO DAILY 07/16/16 [History Confirmed 02/25/19] Calcium Carbonate/Vitamin D3 [Calcium 600-Vit D3 200 Tablet] 1 each PO BID 07/16 [History Confirmed 02/25/19] Furosemide 40 mg [Lasix 40 MG] 40 mg PO BID 07/16/16 [History Confirmed ] Hydrocodone Bit/Acetaminophen [[place] 5-325 Tablet] 1 each PO HS 07/16/16 [ History Confirmed 02/25/19] Insulin Glargine [Lantus Insulin] 20 unit SQ HS 07/16/16 [History Confirmed 02/25/19] Magnesium Oxide 400 mg [Mag-Ox 400] 400 mg PO DAILY 07/16/16 [History Confirmed 02/25/19] Nitroglycerin 0.4 mg Tablet [Nitrostat 0.4 MG Tablet] 0.4 mg SL Q5MIN PRN MR X 3 PRN 07/16/16 [History Confirmed 02/25/19] Ondansetron HCl [Zofran] 4 mg PO Q6HPRN PRN 07/16/16 [History Confirmed 02/25/19 ] Potassium Chloride [K-Dur] 10 meq PO DAILY 07/16/16 [History Confirmed 02/25/19] Promethazine HCl 25 mg Amp [Phenergan 25 MG INJ] 12.5 mg IM Q6HPRN PRN [History Confirmed 02/25/19] Simvastatin [Zocor] 10 mg PO HS 07/16/16 [History Confirmed 02/25/19] dilTIAZem HCl [Diltiazem 24Hr ER (Cd)] 120 mg PO DAILY #30 cap.er.24h 07/21/16 [ Rx Confirmed 02/25/19] Levothyroxine Sodium 100 Mcg [Synthroid 100 Mcg] 100 mcg PO DAILY 06/25/17 [History Confirmed 02/25/19] Magnesium Hydroxide 30 ml [Milk of Magnesia 30 ml] 30 ml PO DAILY PRN PRN 06/25/17 [History Confirmed 02/25/19] Lisinopril 5 mg [Zestril 5 MG] 2.5 mg PO DAILY 02/10/18 [History Confirmed 02/25/19] Melatonin/Pyridoxine HCl (B6) [Melatonin 3 mg Tablet] 1 each PO HS 02/10/18 [ History Confirmed 02/25/19] Memantine HCl [Namenda] 10 mg PO BID 02/10/18 [History Confirmed 02/25/19] Benzonatate [Tessalon Perle] 100 mg PO Q12H PRN PRN 02/25/19 [History Confirmed 02/25/19] Insulin Lispro [Humalog] 100 unit SQ TIDWMEALS 02/25/19 [History Confirmed 02/25] Rivaroxaban 10 mg Tablet [Xarelto 10 mg Tablet] 10 mg PO DAILY 02/25/19 [ History Confirmed 02/25/19] Vit C/E/Zn/Coppr/Lutein/Zeaxan [Preservision Areds 2 Softgel] 1 each PO BID 05/09 [History Confirmed 02/25/19] Allergies/Adverse Reactions: Allergies Allergy/AdvReac Type Severity Reaction Status Date / Time ciclopirox [From Loprox] Allergy Unknown Verified 02/10/18 16:28 ciclopirox olamine Allergy Unknown Verified 02/10/18 16:28 [From Loprox] morphine Allergy Unknown Verified 02/10/18 16:28 oxycodone [Oxycodone] Allergy Unknown Verified 02/10/18 16:28 Sulfa (Sulfonamide Allergy Unknown Verified 02/10/18 16:28 Antibiotics) [Sulfa(Sulfonamide Antibiotics)] Band-aid Allergy Unknown Uncoded 02/10/18 16:28 Pentazocine Lactate Allergy Unknown Uncoded 02/10/18 16:28 - Past Medical History Past Medical History: No Neurological History: Migraines, TIA ENT History: No Pertinent History, Other Cardiac History: Hypertension Respiratory History: No Pertinent History Endocrine Medical History: Diabetes Type II Musculoskelatal History: No Pertinent History GI Medical History: No Pertinent History History: No Pertinent History Pyscho-Social History: No Pertinent History Reproductive Disorders: No Pertinent History Comment: chronic pain - Female History Are you now?: No - Past Surgical History Past Surgical History: No Neuro Surgical History: No Pertinent History Cardiac History: No Pertinent History Respiratory Surgery: No Pertinent History GI Surgical History: Appendectomy, Cholecystectomy Genitourinary Surgical Hx: No Pertinent History Musculskeletal Surgical Hx: No Pertinent History Female Surgical History: No Pertinent History - Social History Smoking Status: Never smoker Exposure to second hand smoke: No Alcohol: None Drug Use: none Significant Family History: heart disease, diabetes - Physical Exam Vital Signs: Vital Signs - 24 hr Temp Pulse Resp BP Pulse Ox 02/26/19 07:33 97.7 F 82 20 126/80 96 02/26/19 04:07 98.3 F 71 17 126/61 95 02/25/19 23:45 98.2 F 79 20 101/53 94 L 02/25/19 19:50 98.2 F 66 16 128/80 98 02/25/19 14:23 98.2 F 66 16 128/80 98 02/25/19 13:27 98.1 F 73 18 146/87 98 02/25/19 12:37 98.0 F 82 16 155/75 100 General Appearance: no apparent distress, obese Neurologic Exam: alert, cooperative, 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 muscular atrophy in lower extremities present), No sensory deficit Respiratory Exam: normal breath sounds, lungs clear, No respiratory distress Cardiovascular Exam: regular rate/rhythm, normal heart sounds, normal peripheral pulses Gastrointestinal/Abdomen Exam: soft, normal bowel sounds, No tenderness, No mass Skin Exam: normal color, warm, dry, No rash Results - Labs Lab/Micro Results: Accuchecks Date 02/26/19 Time 21:00 Accucheck Value: 174 Lab Results-Last 24 Hours 02/25/19 02/25/19 02/25/19 Range/Units 13:00 13:00 13:00 WBC 9.6 (4.0-10.5) K/mm3 RBC 4.06 L (4.1-5.4) M/mm3 Hgb 12.0 (12.0-16.0) gm/dl Hct 38.3 (35-47) % MCV 94.3 (78-100) fl MCH 29.5 (26-32) pg MCHC 31.3 L (32-36) g/dl RDW 16.6 H (11.5-14.0) % Plt Count 196 (150-450) K/mm3 MPV 11.7 H (6-9.5) fl Gran % 66.5 H (36.0-66.0) % Eos # (Auto) 0.21 (0-0.5) Absolute Lymphs (auto) 2.25 (1.0-4.6) Absolute Monos (auto) 0.73 (0.0-1.3) Lymphocytes % 23.4 L (24.0-44.0) % Monocytes % 7.6 (0.0-12.0) % Eosinophils % 2.2 (0.00-5.0) % Basophils % 0.3 (0.0-0.4) % Absolute Granulocytes 6.41 (1.4-6.9) Basophils # 0.03 (0-0.4) PT 21.7 H (9.95-12.35) SECONDS INR 1.85 (0.8-3.0) APTT 41.5 H (25.3-37.0) SECONDS Sodium 141 (137-145) mmol/L Potassium 4.2 (3.5-5.1) mmol/L Chloride 101 (98-107) mmol/L Carbon Dioxide 31 H (22-30) mmol/L Anion Gap 13.9 (5-15) MEQ/L BUN 28 H (7-17) mg/dL Creatinine 1.26 H (0.52-1.04) mg/dL Estimated GFR 42.7 ML/MIN Glucose 124 H (74-106) mg/dL Calcium 10.3 H (8.4-10.2) mg/dL Total Bilirubin 0.30 (0.2-1.3) mg/dL AST 20 (14-36) U/L ALT 13 (0-35) U/L Alkaline Phosphatase 95 (38-126) U/L Serum Total Protein 8.0 (6.3-8.2) g/dL Albumin 4.0 (3.5-5.0) g/dL Accuchecks Date 02/26/19 Time 21:00 Accucheck Value: 174 - Radiology Impressions Radiology Exams & Impressions: Radiology Procedures Category Date Time Status CHEST 1 VIEW (PORTABLE) Stat Exams 02/25/19 12:43 Completed HEAD WITHOUT CONTRAST [CT] Stat Exams 02/25/19 12:43 Completed Assessment/Plan (1) TIA (transient ischemic attack) Current Visit: Yes Status: Acute Assessment & Plan: symptoms resolved, patient appears to be near her baseline. she is on aspirin and xarelto, she is SCO. do not recommend further workup since patient is not a candidate for any intervention etc. she agrees with this plan of care. Code(s): G45.9 - TRANSIENT CEREBRAL ISCHEMIC ATTACK, UNSPECIFIED Hospital Summary - Vitals & Intake/Output Vital Signs: Vital Signs Temperature 97.7 F 02/26/19 07:33 Pulse Rate 82 02/26/19 07:33 Respiratory Rate 20 02/26/19 07:33 Blood Pressure 126/80 02/26/19 07:33 O2 Sat by Pulse Oximetry 96 02/26/19 07:33 Intake & Output: Intake & Output 02/23/19 02/24/19 02/25/19 02/26/19 11:59 11:59 11:59 11:59 Intake Total 500 Balance 500 Weight 94.9 kg - Lab Result Diagrams: 02/25/19 13:00 02/25/19 13:00 Lab Results-Last 24 Hrs: Accuchecks Date 02/26/19 Time 21:00 Accucheck Value: 174 Lab Results-Last 24 Hours 02/25/19 02/25/19 02/25/19 Range/Units 13:00 13:00 13:00 WBC 9.6 (4.0-10.5) K/mm3 RBC 4.06 L (4.1-5.4) M/mm3 Hgb 12.0 (12.0-16.0) gm/dl Hct 38.3 (35-47) % MCV 94.3 (78-100) fl MCH 29.5 (26-32) pg MCHC 31.3 L (32-36) g/dl RDW 16.6 H (11.5-14.0) % Plt Count 196 (150-450) K/mm3 MPV 11.7 H (6-9.5) fl Gran % 66.5 H (36.0-66.0) % Eos # (Auto) 0.21 (0-0.5) Absolute Lymphs (auto) 2.25 (1.0-4.6) Absolute Monos (auto) 0.73 (0.0-1.3) Lymphocytes % 23.4 L (24.0-44.0) % Monocytes % 7.6 (0.0-12.0) % Eosinophils % 2.2 (0.00-5.0) % Basophils % 0.3 (0.0-0.4) % Absolute Granulocytes 6.41 (1.4-6.9) Basophils # 0.03 (0-0.4) PT 21.7 H (9.95-12.35) SECONDS INR 1.85 (0.8-3.0) APTT 41.5 H (25.3-37.0) SECONDS Sodium 141 (137-145) mmol/L Potassium 4.2 (3.5-5.1) mmol/L Chloride 101 (98-107) mmol/L Carbon Dioxide 31 H (22-30) mmol/L Anion Gap 13.9 (5-15) MEQ/L BUN 28 H (7-17) mg/dL Creatinine 1.26 H (0.52-1.04) mg/dL Estimated GFR 42.7 ML/MIN Glucose 124 H (74-106) mg/dL Calcium 10.3 H (8.4-10.2) mg/dL Total Bilirubin 0.30 (0.2-1.3) mg/dL AST 20 (14-36) U/L ALT 13 (0-35) U/L Alkaline Phosphatase 95 (38-126) U/L Serum Total Protein 8.0 (6.3-8.2) g/dL Albumin 4.0 (3.5-5.0) g/dL Micro Results-Entire Visit: Accuchecks Date 02/26/19 Time 21:00 Accucheck Value: 174 - Radiology Exams Ordered Rad Exams-Entire Visit: Radiology Procedures Category Date Time Status CHEST 1 VIEW (PORTABLE) Stat Exams 02/25/19 12:43 Completed HEAD WITHOUT CONTRAST [CT] Stat Exams 02/25/19 12:43 Completed - Procedures and Test Procedures and Tests throughout Hospitalization: Therapy Orders & Screens 02/25/19 17:15 Speech Therapy Eval & Treat [ST Eval & Treat ( Order)] .as ordered Comment: Physician Instructions: Reason For Exam: Evaluate: Yes Treat: Yes Reason for Eval: TIA FAILED SWALLOW EVAL PER NURSING Diagnosis: tia - Discharge Disposition: Skilled Care @ [facility] Condition: Stable Prescriptions: Continue Furosemide 40 mg [Lasix 40 MG] 40 mg PO BID Calcium Carbonate/Vitamin D3 [Calcium 600-Vit D3 200 Tablet] 1 each PO BID Simvastatin [Zocor] 10 mg PO HS Hydrocodone Bit/Acetaminophen [[place] 5-325 Tablet] 1 each PO HS Potassium Chloride [K-Dur] 10 meq PO DAILY Magnesium Oxide 400 mg [Mag-Ox 400] 400 mg PO DAILY Aspirin 81 mg PO DAILY Insulin Glargine [Lantus Insulin] 20 unit SQ HS Promethazine HCl 25 mg Amp [Phenergan 25 MG INJ] 12.5 mg IM Q6HPRN PRN PRN Reason: Nausea/Vomiting Nitroglycerin 0.4 mg Tablet [Nitrostat 0.4 MG Tablet] 0.4 mg SL Q5MIN PRN MR X 3 PRN PRN Reason: Chest Pain Acetaminophen 325 mg [Tylenol 325 mg] 650 mg PO Q4HPRN PRN PRN Reason: Pain And/Or Fever Ondansetron HCl [Zofran] 4 mg PO Q6HPRN PRN PRN Reason: Nausea dilTIAZem HCl [Diltiazem 24Hr ER (Cd)] 120 mg PO DAILY #30 cap.er.24h Levothyroxine Sodium 100 Mcg [Synthroid 100 Mcg] 100 mcg PO DAILY Magnesium Hydroxide 30 ml [Milk of Magnesia 30 ml] 30 ml PO DAILY PRN PRN PRN Reason: Constipation Melatonin/Pyridoxine HCl (B6) [Melatonin 3 mg Tablet] 1 each PO HS Memantine HCl [Namenda] 10 mg PO BID Lisinopril 5 mg [Zestril 5 MG] 2.5 mg PO DAILY Benzonatate [Tessalon Perle] 100 mg PO Q12H PRN PRN PRN Reason: Cough Vit C/E/Zn/Coppr/Lutein/Zeaxan [Preservision Areds 2 Softgel] 1 each PO BID Rivaroxaban 10 mg Tablet [Xarelto 10 mg Tablet] 10 mg PO DAILY Insulin Lispro [Humalog] 100 unit SQ TIDWMEALS
[2019-02-26] MEDS ORDERED: Nitrostat 0.4 MG Tablet SL PRN (08:56)
[2019-02-26] MEDS ORDERED: Phenergan 25 MG INJ IM PRN (08:56)
[2019-02-26] MEDS ORDERED: NON-FORMULARY ITEM (Ondansetron Hcl [Zofran] 4 MG) PO PRN (08:56)
[2019-02-26] MEDS ORDERED: MILK OF MAGNESIA 30 ML PO PRN (08:56)
[2019-02-26] MEDS ORDERED: TYLENOL 325 MG PO PRN (08:56)
[2019-02-26] MEDS ORDERED: Tessalon Perles 100 MG PO PRN (08:56)
[2019-02-26] MEDS ORDERED: ZOFRAN ODT 4 MG PO PRN (09:12)
[2019-02-26] MEDS ORDERED: NON-FORMULARY ITEM (Calcium Carbonate/Vitamin D3 [Calcium 600-Vit D3 200 Tablet] 1 EACH) PO SCH (10:00)
[2019-02-26] MEDS ORDERED: Klor Con 10 MEQ PO SCH (10:00)
[2019-02-26] MEDS ORDERED: Ocuvite Tablet PO SCH (10:00)
[2019-02-26] MEDS ORDERED: NON-FORMULARY ITEM (Vit C/E/Zn/Coppr/Lutein/Zeaxan [Preservision Areds 2 Softgel] 1 EACH) PO SCH (10:00)
[2019-02-26] MEDS ORDERED: Namenda 5 MG PO SCH (10:00)
[2019-02-26] MEDS ORDERED: NON-FORMULARY ITEM (Aspirin [Aspirin] 81 MG) PO SCH (10:00)
[2019-02-26] MEDS ORDERED: XARELTO 10 MG TABLET PO SCH (10:00)
[2019-02-26] MEDS ORDERED: Calcium 500MG W/Vit D Tablet PO SCH (10:00)
[2019-02-26] MEDS ORDERED: NON-FORMULARY ITEM (Memantine Hcl [Namenda] 10 MG) PO SCH (10:00)
[2019-02-26] MEDS ORDERED: NON-FORMULARY ITEM (Potassium Chloride [K-Dur] 10 MEQ) PO SCH (10:00)
[2019-02-26] MEDS ORDERED: Cardizem CD 120 MG PO SCH (10:00)
[2019-02-26] MEDS ORDERED: ECOTRIN 81 MG PO SCH (10:00)
[2019-02-26] MEDS ORDERED: MAG-OX 400 PO SCH (10:00)
[2019-02-26] MEDS ORDERED: SYNTHROID 100 MCG PO SCH (10:00)
[2019-02-26] MEDS ORDERED: Zestril 5 MG PO SCH (10:00)
[2019-02-26] MEDS: Lasix 40 MG PO SCH (11:06)
[2019-02-26] MEDS ORDERED: NON-FORMULARY ITEM (Insulin Lispro 100 UNIT) SQ SCH (12:00)
[2019-02-26] MEDS ORDERED: NovoLOG Insulin SQ SCH (12:00)
[2019-02-26 12:17] VITALS: BP 128/76; PULSE 80; O2SAT 95
[2019-02-26] MEDS ORDERED: NON-FORMULARY ITEM (Melatonin/Pyridoxine Hcl (B6) [Melatonin 3 Mg Tablet] 1 EACH) PO SCH (22:00)
== END 2019-02-26 12:54 ==
LOC: ED 12:36 → MED SURG 14:55
PROVIDERS: ADMIT Family Medicine; ATTEND Family Medicine
DX: G45.9 Transient cerebral ischemic attack, unspecified (principal); I10 Essential (primary) hypertension; E11.9 Type 2 diabetes mellitus without complications; Z79.899 Other long term (current) drug therapy; Z79.4 Long term (current) use of insulin
CPT/HCPCS: 36415; 51702; 70450; 71045; 80053; 82962; 85025; 85610; 85730; 92610; 93005; 93041; 93268; 99285; G0378; Q3014; A9270-GY

== ENCOUNTER 2019-11-18 16:58 | Emergency (ER) | payer MEDICARE ==
--- NOTE | 2019-11-18 17:14 | ERPHSYRPT ---
- History of Present Illness Time Seen by Provider: 11/18/19 17:13 Source: patient, EMS Exam Limitations: no limitations Physician History: The patient is an 81-year-old female with a past medical history significant for prior CVAs with right-sided facial drooping, TIAs, hypertension, hyperlipidemia, documented dementia and diabetes mellitus presentswith a chief complaint of a possible stroke. Of note, she arrives from an [facility], specifically [place]. Nursing staff called EMS after the patient had an episode of altered mentation in what appeared to be a right-sided facial droop. Her concern the patient may be suffering a stroke and administered a total 2 full dose aspirins before EMS arrived. The patient arrived to the emergency department, she endorsed that she had a slight headache that resolved prior to arrival, specifically after receiving the aspirin administered by the nursing staff at [facility]. She cannot recall what happened in terms of what led her to come to the emergency department today. She states that the nursing staff suddenly appeared by her bed and she did not want to come to the emergency department and feels that she was forced to come to the emergency department by the nursing staff. She states that she is just tired and is currently refusing any workup with the exception of a noncontrasted head CT. She states she is tired of being stuck by needles and tired of coming to the emergency department in the hospital he just wants to . Eventually her son arrived to the emergency department in he reportedly is the POA but admits that the patient is capable of making decisions for herself when she is not incapacitated, specifically in terms of medical decisions. Allergies/Adverse Reactions: ciclopirox [From Loprox] Allergy (Unknown, Verified 11/18/19 17:44) ciclopirox olamine [From Loprox] Allergy (Unknown, Verified 11/18/19 17:44) morphine Allergy (Unknown, Verified 11/18/19 17:44) oxycodone [Oxycodone] Allergy (Unknown, Verified 11/18/19 17:44) Sulfa (Sulfonamide Antibiotics) [Sulfa(Sulfonamide Antibiotics)] Allergy ( Unknown, Verified 11/18/19 17:44) Band-aid Allergy (Unknown, Uncoded 11/18/19 17:44) Pentazocine Lactate Allergy (Unknown, Uncoded 11/18/19 17:44) Home Medications: Acetaminophen 325 mg [Tylenol 325 mg] 650 mg PO Q4HPRN PRN 07/16/16 [ History] Aspirin 81 mg PO DAILY 07/16/16 [History] Calcium Carbonate/Vitamin D3 [Calcium 600-Vit D3 200 Tablet] 1 each PO BID 07/16 [History] Furosemide 40 mg [Lasix 40 MG] 40 mg PO BID 07/16/16 [History] Hydrocodone Bit/Acetaminophen [[place] 5-325 Tablet] 1 each PO BID 07/16/16 [ History] Insulin Glargine [Lantus Insulin] 60 unit SQ HS 07/16/16 [History] Magnesium Oxide 400 mg [Mag-Ox 400] 400 mg PO DAILY 07/16/16 [History] Nitroglycerin 0.4 mg Tablet [Nitrostat 0.4 MG Tablet] 0.4 mg SL Q5MIN PRN MR X 3 PRN 07/16/16 [History] Ondansetron HCl [Zofran] 4 mg PO Q6HPRN PRN 07/16/16 [History] Potassium Chloride [K-Dur] 10 meq PO DAILY 07/16/16 [History] Promethazine HCl 25 mg Amp [Phenergan 25 MG INJ] 12.5 mg IM Q6HPRN PRN [History] Simvastatin [Zocor] 10 mg PO HS 07/16/16 [History] Levothyroxine Sodium 100 Mcg [Synthroid 100 Mcg] 100 mcg PO DAILY 06/25/17 [History] Magnesium Hydroxide 30 ml [Milk of Magnesia 30 ml] 30 ml PO DAILY PRN PRN 06/25/17 [History] Lisinopril 5 mg [Zestril 5 MG] 2.5 mg PO DAILY 02/10/18 [History] Melatonin/Pyridoxine HCl (B6) [Melatonin 3 mg Tablet] 1 each PO HS 02/10/18 [ History] Memantine HCl [Namenda] 10 mg PO BID 02/10/18 [History] Benzonatate [Tessalon Perle] 100 mg PO Q6H PRN PRN 02/25/19 [History] Insulin Lispro [Humalog] 20 unit SQ TIDWMEALS 02/25/19 [History] Rivaroxaban 10 mg Tablet [Xarelto 10 mg Tablet] 10 mg PO DAILY 02/25/19 [ History] Vit C/E/Zn/Coppr/Lutein/Zeaxan [Preservision Areds 2 Softgel] 1 each PO BID 05/09 [History] Hx Tetanus, Diphtheria Vaccination/Date Given: No Hx Influenza Vaccination/Date Given: No Hx Pneumococcal Vaccination/Date Given: No - Review of Systems Constitutional: Fatigue, Weakness Neurological: Headache All Other Systems: Reviewed and Negative - Past Medical History Pertinent Past Medical History: No Neurological History: Migraines, TIA ENT History: No Pertinent History, Other Cardiac History: Hypertension Respiratory History: No Pertinent History Endocrine Medical History: Diabetes Type II Musculoskeletal History: No Pertinent History GI Medical History: No Pertinent History History: No Pertinent History Psycho-Social History: No Pertinent History Female Reproductive Disorders: No Pertinent History Other Medical History: chronic pain - Past Surgical History Past Surgical History: No Neuro Surgical History: No Pertinent History Cardiac: No Pertinent History Respiratory: No Pertinent History Gastrointestinal: Appendectomy, Cholecystectomy Genitourinary: No Pertinent History Musculoskeletal: No Pertinent History Female Surgical History: No Pertinent History - Social History Smoking Status: Never smoker Exposure to second hand smoke: No Alcohol Use: None Drug Use: none Patient Lives Alone: No ([facility]) Significant Family History: heart disease, diabetes - Nursing Vital Signs Nursing Vital Signs: Initial Vital Signs Temperature 96.0 F 11/18/19 16:59 Pulse Rate 57 L 11/18/19 16:59 Respiratory Rate 12 11/18/19 16:59 Blood Pressure 135/80 11/18/19 16:59 O2 Sat by Pulse Oximetry 100 11/18/19 16:59 Pain Scale Pain Intensity 0 - Physical Exam General Appearance: no apparent distress, alert, obese Eye Exam: PERRL/EOMI, other (Patient could see me but 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) Ears, Nose, Throat Exam: normal ENT inspection, pharynx normal, No pharyngeal erythema, No tonsillar exudate Neck Exam: normal inspection, supple Respiratory Exam: normal breath sounds, lungs clear, airway intact, No chest tenderness, No respiratory distress Cardiovascular Exam: normal peripheral pulses, bradycardia, capillary refill <2 sec Gastrointestinal/Abdomen Exam: soft, normal bowel sounds, No tenderness, No distention, No mass Pelvic Exam: not done Rectal Exam: deferred Back Exam: normal inspection Extremity Exam: normal inspection, pedal edema, No tenderness Neurologic Exam: alert, oriented x 3, cooperative, sensation nml, depressed mood /affect, facial droop, other (Mild right sided facial droop, no pronator drift, 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 She endorsed that she is tired and ready to and no longer wants to come to the ED or be hospitalized and is upset that she was sent to the ED today. She explained to me that she is content with the life that she has lived and has good insight on her comorbidities and the dying process, which she endorsed to me that she is ready for. This discussion was held with her son in the room, who along with his sister who was contacted via speaker phone decided as a family to obey the patient's wishes. The patient and family agreed to have discharged back to her ECF given the son nor the daughter were capable of taking care of her at home. Family agreed to reach out to her PCP and inquire about hospice services/comfort measures and agreed to have the ECF staff contacted to instructed them to no longer call for an ambulance in such circumstances unless the patient requested to have such done and/or to check with him and the patient's daughter to have this decision cleared by them. The patient's nurse contacted [facility] and spoke with the nursing staff about this and they agreed. Discussed with Dr.: Sheehan (Ok to discharge back to ECF. Agrees with patient' s and family decision to inquire about hospice or at least the right to chose to not come to the ED if symptoms continue or recur) Counseled pt/family regarding: rad results - Departure Departure Disposition: Extended Care Facility Clinical Impression: TIA (transient ischemic attack) Condition: Stable Critical Care Time: No Referrals: SHWETA DAMICO [Primary Care Provider] - SAL DIAS MD [ACTIVE STAFF] - Instructions: Transient Ischemic Attack (DC) Additional Instructions: Please follow-up with Dr. Dias in terms of options pertaining to hospice or comfort measures.
[2019-11-18 17:42] VITALS: BP 135/80; PULSE 57; O2SAT 100
--- NOTE | 2019-11-19 08:36 | XRAY ---
Indication: Right facial drooping. Multiple contiguous axial images obtained through the head without contrast. Comparison: February 25, 2019. Several images slightly degraded by motion artifact. Grossly stable age-appropriate global atrophy, moderate periventricular degenerative micro-ischemia bilaterally, and remote right thalamic lacunar infarct. No acute intracranial hemorrhage, abnormal extra-axial fluid collection, or mass effect. Fourth ventricle is midline without hydrocephalus. 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 Visualized paranasal sinuses and mastoid air cells are clear. Impression: Motion artifact. Grossly stable nonacute senile brain and remote right thalamic lacunar infarct.
== END 2019-11-18 19:00 | disposition home or self-care (01) ==
LOC: ED 16:58
DX: G45.9 Transient cerebral ischemic attack, unspecified (principal)
CPT/HCPCS: 70450; 99283

== ENCOUNTER 2020-08-24 23:26 | Inpatient (IN) | payer MEDICARE ==
--- NOTE | 2020-08-24 23:40 | ERPHSYRPT ---
- History of Present Illness Time Seen by Provider: 08/24/20 23:28 Source: EMS Exam Limitations: clinical condition Physician History: Patient arrives from senior care with unknown condition. Patient is less responsive per the senior care staff. Initially they thought the patient was hypoglycemic. However, EMS found the patient to have a glucose of 110. Glucose is 95 at bedside here. Patient has no known falls. She is not interacting on my exam. She is currently on a nonrebreather. EMS does have the paperwork at bedside that states that she is a DO NOT RE SUSCITATE, and does not wish to be intubated. Allergies/Adverse Reactions: ciclopirox [From Loprox] Allergy (Unknown, Verified 08/25/20 00:22) ciclopirox olamine [From Loprox] Allergy (Unknown, Verified 08/25/20 00:22) morphine Allergy (Unknown, Verified 08/25/20 00:22) oxycodone [Oxycodone] Allergy (Unknown, Verified 08/25/20 00:22) Sulfa (Sulfonamide Antibiotics) [Sulfa(Sulfonamide Antibiotics)] Allergy (Unknown, Verified 08/25/20 00:22) Band-aid Allergy (Unknown, Uncoded 08/25/20 00:22) Pentazocine Lactate Allergy (Unknown, Uncoded 08/25/20 00:22) Home Medications: Acetaminophen 325 mg [Tylenol 325 mg] 650 mg PO Q4HPRN PRN 07/16/16 [History] Aspirin 81 mg PO DAILY 07/16/16 [History] Calcium Carbonate/Vitamin D3 [Calcium 600-Vit D3 200 Tablet] 1 each PO BID 07/16/16 [History] Furosemide 40 mg [Lasix 40 MG] 40 mg PO BID 07/16/16 [History] Hydrocodone Bit/Acetaminophen [Treadwell 5-325 Tablet] 1 each PO BID 07/16/16 [History] Insulin Glargine [Lantus Insulin] 60 unit SQ HS 07/16/16 [History] Magnesium Oxide 400 mg [Mag-Ox 400] 400 mg PO DAILY 07/16/16 [History] Nitroglycerin 0.4 mg Tablet [Nitrostat 0.4 MG Tablet] 0.4 mg SL Q5MIN PRN MR X 3 PRN 07/16/16 [History] Ondansetron HCl [Zofran] 4 mg PO Q6HPRN PRN 07/16/16 [History] Potassium Chloride [K-Dur] 10 meq PO DAILY 07/16/16 [History] Promethazine HCl 25 mg Amp [Phenergan 25 MG INJ] 12.5 mg IM Q6HPRN PRN 07/16/16 [History] Simvastatin [Zocor] 10 mg PO HS 07/16/16 [History] Levothyroxine Sodium 100 Mcg [Synthroid 100 Mcg] 100 mcg PO DAILY 06/25/17 [History] Magnesium Hydroxide 30 ml [Milk of Magnesia 30 ml] 30 ml PO DAILY PRN PRN 06/25/17 [History] Lisinopril 5 mg [Zestril 5 MG] 2.5 mg PO DAILY 02/10/18 [History] Melatonin/Pyridoxine HCl (B6) [Melatonin 3 mg Tablet] 1 each PO HS 02/10/18 [History] Memantine HCl [Namenda] 10 mg PO BID 02/10/18 [History] Benzonatate [Tessalon Perle] 100 mg PO Q6H PRN PRN 02/25/19 [History] Insulin Lispro [Humalog] 20 unit SQ TIDWMEALS 02/25/19 [History] Rivaroxaban 10 mg Tablet [Xarelto 10 mg Tablet] 10 mg PO DAILY 02/25/19 [History] Vit C/E/Zn/Coppr/Lutein/Zeaxan [Preservision Areds 2 Softgel] 1 each PO BID 02/25/19 [History] Hx Tetanus, Diphtheria Vaccination/Date Given: No Hx Influenza Vaccination/Date Given: No Hx Pneumococcal Vaccination/Date Given: No - Review of Systems All Other Systems: Unable due to condition - Past Medical History Pertinent Past Medical History: No Neurological History: Migraines, TIA ENT History: No Pertinent History, Other Cardiac History: Hypertension Respiratory History: No Pertinent History Endocrine Medical History: Diabetes Type II Musculoskeletal History: No Pertinent History GI Medical History: No Pertinent History History: No Pertinent History Psycho-Social History: No Pertinent History Female Reproductive Disorders: No Pertinent History Other Medical History: chronic pain - Past Surgical History Past Surgical History: No Neuro Surgical History: No Pertinent History Cardiac: No Pertinent History Respiratory: No Pertinent History Gastrointestinal: Appendectomy, Cholecystectomy Genitourinary: No Pertinent History Musculoskeletal: No Pertinent History Female Surgical History: No Pertinent History - Social History Smoking Status: Never smoker Exposure to second hand smoke: No Alcohol Use: None Drug Use: none Patient Lives Alone: No ([facility]) Significant Family History: heart disease, diabetes - Nursing Vital Signs Nursing Vital Signs: Initial Vital Signs Temperature 96.1 F 08/24/20 23:27 Pulse Rate 46 L 08/24/20 23:27 Respiratory Rate 26 H 08/24/20 23:27 Blood Pressure 110/46 08/24/20 23:27 O2 Sat by Pulse Oximetry 100 08/24/20 23:27 Pain Scale Pain Intensity 0 - Physical Exam General Appearance: other (Patient interactive on my exam. She is moving all 4 extremities. She is obeying commands.) Eye Exam: eyes nml inspection Ears, Nose, Throat Exam: pharynx normal Neck Exam: normal inspection Respiratory Exam: chest tenderness (Breathing is slow.) Cardiovascular Exam: other (Bradycardia) Back Exam: normal inspection Extremity Exam: normal inspection Neurologic Exam: other (Minimally reactive at best. Does move all 4 extremities. Withdraws to pain. She is not making any noise. She does not obey commands. However, she is not posturing.) Skin Exam: warm, dry SpO2 Interpretation: normal SpO2: 100 - Course Nursing assessment & vital signs reviewed: Yes EKG Interpreted by Me: A-fib (Rate of 42, A. fib nonspecific changes) Ordered Tests: Active Orders 24 hr Category Date Time Status [employer] Supervisor STAT Care 08/24/20 23:29 Active Catheter-Sibley Desir STAT Care 08/24/20 23:30 Active EKG-ER Only STAT Care 08/24/20 23:28 Active IV Insertion STAT Care 08/24/20 23:28 Active Pulse Oximetry (ED) STAT Care 08/24/20 23:28 Active CHEST 1 VIEW (PORTABLE) Stat Exams 08/24/20 23:58 Taken HEAD WITHOUT CONTRAST [CT] Stat Exams 08/24/20 23:29 Taken CBC W DIFF Stat Lab 08/24/20 23:40 Completed CMP Stat Lab 08/24/20 23:40 Completed CULTURE,URINE Stat Lab 08/24/20 23:41 Received LIPASE Stat Lab 08/24/20 23:41 Completed Lactic Acid Stat Lab 08/24/20 23:35 Completed NT PRO BNP Stat Lab 08/24/20 23:40 Completed TROPONIN Q3H Lab 08/24/20 23:40 Completed TROPONIN Q3H Lab 08/25/20 02:30 Ordered TROPONIN Q3H Lab 08/25/20 05:30 Ordered TROPONIN Q3H Lab 08/25/20 08:30 Ordered TROPONIN Q3H Lab 08/25/20 11:30 Ordered UA W/RFX UR CULTURE Stat Lab 08/24/20 23:41 Completed Medication Summary Generic Name Dose Route Start Last Admin Trade Name Freq PRN Reason Stop Dose Admin Dextrose 250 mls @ 10 mls/hr 08/24/20 23:45 Dextrose 10% 250 Ml IV 09/23/20 23:44 .Q24H JOSE Piperacillin Sod/Tazobactam 100 mls @ 200 mls/hr 08/24/20 23:57 Sod 4.5 gm/ Sodium Chloride IV 08/25/20 00:26 STAT ONE Vancomycin HCl 2 gm in 400 mls @ 133.333 mls/hr 08/24/20 23:57 Vancomycin 2 Gram/400 Ml Bag IV 08/25/20 02:56 STAT ONE Lab/Rad Data: Laboratory Result Diagrams 08/24/20 23:40 08/24/20 23:40 Laboratory Results 08/24/20 08/24/20 08/24/20 Range/Units 23:41 23:41 23:40 WBC (4.0-10.5) K/mm3 RBC (4.1-5.4) M/mm3 Hgb (12.0-16.0) gm/dl Hct (35-47) % MCV (78-100) fl MCH (26-32) pg MCHC (32-36) g/dl RDW (11.5-14.0) % Plt Count (150-450) K/mm3 MPV (7.5-11.0) fl Gran % (36.0-66.0) % Eos # (Auto) (0-0.5) Absolute Lymphs (auto) (1.0-4.6) Absolute Monos (auto) (0.0-1.3) Lymphocytes % (24.0-44.0) % Monocytes % (0.0-12.0) % Eosinophils % (0.00-5.0) % Basophils % (0.0-0.4) % Absolute Granulocytes (1.4-6.9) Basophils # (0-0.4) Sodium (137-145) mmol/L Potassium (3.5-5.1) mmol/L Chloride (98-107) mmol/L Carbon Dioxide (22-30) mmol/L Anion Gap (5-15) MEQ/L BUN (7-17) mg/dL Creatinine (0.52-1.04) mg/dL Estimated GFR ML/MIN Glucose (74-106) mg/dL Lactic Acid (0.4-2.0) Calcium (8.4-10.2) mg/dL Total Bilirubin (0.2-1.3) mg/dL AST (14-36) U/L ALT (0-35) U/L Alkaline Phosphatase (38-126) U/L Troponin I 0.015 (0.000-0.034) ng/mL NT-Pro-B Natriuret Pep (0-1800) pg/mL Serum Total Protein (6.3-8.2) g/dL Albumin (3.5-5.0) g/dL Lipase 80 (23-300) U/L Urine Color YELLOW (YELLOW) Urine Appearance CLOUDY (CLEAR) Urine pH 5.0 (5-6) Ur Specific English 1.013 (1.005-1.025) Urine Protein NEGATIVE (Negative) Urine Ketones NEGATIVE (NEGATIVE) Urine Blood NEGATIVE (0-5) Newton/ul Urine Nitrite NEGATIVE (NEGATIVE) Urine Bilirubin NEGATIVE (NEGATIVE) Urine Urobilinogen NEGATIVE (0-1) mg/dL Ur Leukocyte Esterase LARGE (NEGATIVE) Urine WBC (Auto) 51-100 (0-5) /HPF Urine RBC (Auto) 0-2 (0-2) /HPF U Hyaline Cast (Auto) 0-2 (0-2) /LPF U Epithel Cells (Auto) NONE (FEW) /HPF Urine Bacteria (Auto) MODERATE (NEGATIVE) /HPF Urine Mucus (Auto) SLIGHT (NEGATIVE) /HPF Urine Culture Reflexed ORDERED SEPARATELY (NO) Urine Glucose NEGATIVE (NEGATIVE) mg/dL 11/03/20 11/03/20 11/03/20 Range/Units 23:40 23:40 23:35 WBC 8.1 (4.0-10.5) K/mm3 RBC 3.86 L (4.1-5.4) M/mm3 Hgb 12.2 (12.0-16.0) gm/dl Hct 36.2 (35-47) % MCV 93.8 (78-100) fl MCH 31.6 (26-32) pg MCHC 33.7 (32-36) g/dl RDW 16.8 H (11.5-14.0) % Plt Count 163 (150-450) K/mm3 MPV 12.2 H (7.5-11.0) fl Gran % 59.3 (36.0-66.0) % Eos # (Auto) 0.09 (0-0.5) Absolute Lymphs (auto) 2.04 (1.0-4.6) Absolute Monos (auto) 1.14 (0.0-1.3) Lymphocytes % 25.3 (24.0-44.0) % Monocytes % 14.1 H (0.0-12.0) % Eosinophils % 1.1 (0.00-5.0) % Basophils % 0.2 (0.0-0.4) % Absolute Granulocytes 4.78 (1.4-6.9) Basophils # 0.02 (0-0.4) Sodium 139 (137-145) mmol/L Potassium 4.4 (3.5-5.1) mmol/L Chloride 106 (98-107) mmol/L Carbon Dioxide 26 (22-30) mmol/L Anion Gap 10.3 (5-15) MEQ/L BUN 52 H (7-17) mg/dL Creatinine 2.22 H (0.52-1.04) mg/dL Estimated GFR 22.2 ML/MIN Glucose 103 (74-106) mg/dL Lactic Acid 1.6 (0.4-2.0) Calcium 10.1 (8.4-10.2) mg/dL Total Bilirubin 0.40 (0.2-1.3) mg/dL AST 22 (14-36) U/L ALT 10 (0-35) U/L Alkaline Phosphatase 95 (38-126) U/L Troponin I (0.000-0.034) ng/mL NT-Pro-B Natriuret Pep 1320 (0-1800) pg/mL Serum Total Protein 7.5 (6.3-8.2) g/dL Albumin 3.8 (3.5-5.0) g/dL Lipase (23-300) U/L Urine Color (YELLOW) Urine Appearance (CLEAR) Urine pH (5-6) Ur Specific English (1.005-1.025) Urine Protein (Negative) Urine Ketones (NEGATIVE) Urine Blood (0-5) Newton/ul Urine Nitrite (NEGATIVE) Urine Bilirubin (NEGATIVE) Urine Urobilinogen (0-1) mg/dL Ur Leukocyte Esterase (NEGATIVE) Urine WBC (Auto) (0-5) /HPF Urine RBC (Auto) (0-2) /HPF U Hyaline Cast (Auto) (0-2) /LPF U Epithel Cells (Auto) (FEW) /HPF Urine Bacteria (Auto) (NEGATIVE) /HPF Urine Mucus (Auto) (NEGATIVE) /HPF Urine Culture Reflexed (NO) Urine Glucose (NEGATIVE) mg/dL - Progress Progress Note: 08/24/20 23:40 Patient is minimally responsive here. Will obtain head CT, broad-based work-up. EKG shows slow A. fib. From my perspective given that she is DO NOT RESUSCITATE with DO NOT INTUBATE, limited interventions. Will not perform any heroic measures at this point in time. We will however treat the patient according to her wishes. This will include a thorough work-up to the best of our abilities and the patient wishes. 08/25/20 00:20 Patient found to have a UTI and elevated creatinine. This very well could be causing her symptoms. We will start Zosyn and vancomycin for broad-spectrum coverage in the emergency department. I did discuss the patient over the phone with on-call physician, Dr. España. He accepted the patient for admission. 08/25/20 00:23 We were unable to get ahold of any family at this time. They did not call the ER for updates either. Discussed with : Devonte Will see patient in: hospital (full admit) Counseled pt/family regarding: lab results, diagnosis, rad results - Departure Departure Disposition: In-patient Admission Clinical Impression: UTI (urinary tract infection), LATANYA (acute kidney injury), [id number] renal failure Condition: Stable Critical Care Time: Yes Critical Care Time(excluding separately billable procedures): Critical 30-74 mins Referrals: SHWETA DAMICO [Primary Care Provider] -
[2020-08-24] MEDS ORDERED: DEXTROSE 10% 250 ML 250 ML IV SCH (23:45)
[2020-08-24 23:47] LABS: Absolute Neutrophil Ct (ANC) 4.78 (1.4-6.9); BASOPHIL % 0.2 % (0.0-0.4); Basophil (Absolute #) 0.02 (0-0.4); Eosinophil % 1.1 % (0.00-5.0); Eosinophil (Absolute #) 0.09 (0-0.5); Hematocrit 36.2 % (35-47); Hemoglobin 12.2 gm/dl (12.0-16.0); Lymphocyte (Absolute #) 2.04 (1.0-4.6); Lymphocytes % 25.3 % (24.0-44.0); Mean Cell Volume 93.8 fl (78-100); Mean Corpuscular Hemoglobin 31.6 pg (26-32); Mean Corpuscular Hgb Concent. 33.7 g/dl (32-36); Mean Platelet Volume 12.2 fl (7.5-11.0); Monocyte (Absolute #) 1.14 (0.0-1.3); Monocytes % 14.1 % (0.0-12.0); Neutrophil % 59.3 % (36.0-66.0); Platelet Count 163 K/mm3 (150-450); Red Blood Count 3.86 M/mm3 (4.1-5.4); Red Cell Distribution Width 16.8 % (11.5-14.0); White Blood Count 8.1 K/mm3 (4.0-10.5)
[2020-08-24 23:54] LABS: Appearance CLOUDY (CLEAR); Bacteria MODERATE /HPF (NEGATIVE); Bilirubin NEGATIVE (NEGATIVE); Blood NEGATIVE Ery/ul (0-5); Glucose NEGATIVE (NEGATIVE); Hyaline Casts 0-2 /LPF (0-2); Ketones NEGATIVE (NEGATIVE); Leukocyte Esterase LARGE (NEGATIVE); Mucus SLIGHT /HPF (NEGATIVE); Nitrite NEGATIVE (NEGATIVE); Protein,Urine Dip NEGATIVE (Negative); RBC 0-2 /HPF (0-2); Specific Gravity 1.013 (1.005-1.025); Urobilinogen NEGATIVE mg/dL (0-1); WBC 51-100 /HPF (0-5)
[2020-08-24] MEDS ORDERED: Zosyn INJ 4.5 GM in Sodium Chloride 100ML MINI-BAG PLUS 100 ML IV ONE (23:57)
[2020-08-24] MEDS ORDERED: VANCOMYCIN 2 GRAM/400 ML BAG 2 GM/400 ML PIGGYBACK IV ONE (23:57)
[2020-08-25 00:13] LABS: ALBUMIN 3.8 g/dL (3.5-5.0); ANION GAP 10.3 MEQ/L (5-15); BILIRUBIN,TOTAL 0.4 mg/dL (0.2-1.3); Calcium 10.1 mg/dL (8.4-10.2); Creatinine 1 2.22 mg/dL (0.52-1.04); EST GLOMERULAR FILTRATION RATE 22.2 ML/MIN; Potassium 4.4 mmol/L (3.5-5.1); Total Protein 7.5 g/dL (6.3-8.2)
[2020-08-25] MEDS ORDERED: Sodium Chloride 100ML MINI-BAG PLUS 100 ML IV ONE (00:25)
[2020-08-25] MEDS ORDERED: VANCOMYCIN 2 GRAM/400 ML BAG 2 GM/400 ML PIGGYBACK IV ONE (00:25)
[2020-08-25] MEDS ORDERED: Zosyn INJ IV ONE (00:25)
[2020-08-25] MEDS ORDERED: DEXTROSE 10% 250 ML 250 ML IV ONE (00:26)
[2020-08-25 03:47] LABS: Slide Review 1 YES
--- NOTE | 2020-08-25 08:53 | XRAY ---
Indication: Cough. Acute mental status change. Comparison: February 25, 2019. Portable apical lordotic chest demonstrates new subtle right base infiltrate versus atelectasis. Remaining lungs clear. Heart remains within normal limits for AP portable technique with stable left hilar calcified nodes. Bony thorax intact again with osteopenia, chanted changes, and scoliosis. Impression: New subtle right base infiltrate/atelectasis. Comment: Right lung finding not reported by interpreting ER clinician. Telephone report given to Dr. Aly in the ER at 0848 hrs. on August 25, 2020.
--- NOTE | 2020-08-25 08:55 | XRAY ---
Indication: Altered mental status. Multiple contiguous ex images obtained through the head without contrast. Comparison: November 18, 2019. Stable age-appropriate global atrophy, moderate periventricular degenerative micro-ischemia bilaterally, and remote right thalamic lacunar infarct. No acute intracranial hemorrhage, abnormal extra-axial fluid collection, or mass effect. Fourth ventricle is midline. Bony calvarium intact again with incidental hyperostosis frontalis interna. Visualized paranasal sinuses and mastoid air cells are clear. Impression: Stable nonacute senile brain with remote right thalamic lacunar infarct. Comment: Preliminary interpretation was made by [facility]. No critical discrepancy.
--- NOTE | 2020-08-25 09:14 | PCM.HP ---
History of Present Illness - Chief Complaint Chief Complaint: UTI History of Present Illness: is a 89 year old female patient from [place], was sent for evaluation last night due to change in mental status, per family nurse said she was moaning and gurgling, family is unable to give more history. Brenda complains of pain in her stomach and feeling cold this morning, she is answering questions and appears to be near her mental status baseline at this time. - Review of Systems Constitutional: No Fever, No Chills Respiratory: No Cough Cardiac: No Chest Pain, No Edema, No Syncope Abdominal/Gastrointestinal: Abdominal Pain Genitourinary Symptoms: No Dysuria All Other Systems: Reviewed and Negative Medications & Allergies Home Medications: Home Medication List Acetaminophen 325 mg [Tylenol 325 mg] 650 mg PO Q4HPRN PRN 07/16/16 [History Confirmed 08/25/20] Aspirin 81 mg PO DAILY 07/16/16 [History Confirmed 08/25/20] Calcium Carbonate/Vitamin D3 [Calcium 600-Vit D3 200 Tablet] 1 tab PO BID 07/16/16 [History Confirmed 08/25/20] Furosemide 40 mg [Lasix 40 MG] 40 mg PO BID 07/16/16 [History Confirmed 08/25/20] Magnesium Oxide 400 mg [Mag-Ox 400] 400 mg PO DAILY 07/16/16 [History Confirmed 08/25/20] Nitroglycerin 0.4 mg Tablet [Nitrostat 0.4 MG Tablet] 0.4 mg SL Q5MIN PRN MR X 3 PRN 07/16/16 [History Confirmed 08/25/20] Ondansetron HCl [Zofran] 4 mg PO Q6HPRN PRN 07/16/16 [History Confirmed 08/25/20] Potassium Chloride [K-Dur] 10 meq PO DAILY 07/16/16 [History Confirmed 08/25/20] Simvastatin [Zocor] 10 mg PO HS 07/16/16 [History Confirmed 08/25/20] dilTIAZem HCl [Diltiazem 24Hr ER (Cd)] 120 mg PO DAILY #30 cap.er.24h 07/21/16 [Rx Confirmed 08/25/20] Levothyroxine Sodium 100 Mcg [Synthroid 100 Mcg] 100 mcg PO DAILY 06/25/17 [History Confirmed 08/25/20] Magnesium Hydroxide 30 ml [Milk of Magnesia 30 ml] 30 ml PO DAILY PRN PRN 06/25/17 [History Confirmed 08/25/20] Lisinopril 5 mg [Zestril 5 MG] 2.5 mg PO DAILY 02/10/18 [History Confirmed 08/25/20] Melatonin/Pyridoxine HCl (B6) [Melatonin 3 mg Tablet] 1 tab PO HS 02/10/18 [History Confirmed 08/25/20] Memantine HCl [Namenda] 10 mg PO BID 02/10/18 [History Confirmed 08/25/20] Insulin Lispro [Humalog] 20 unit SQ TIDWMEALS 02/25/19 [History Confirmed 1 10/25/19] Rivaroxaban 10 mg Tablet [Xarelto 10 mg Tablet] 10 mg PO DAILY 02/25/19 [History Confirmed 08/25/20] Vit C/E/Zn/Coppr/Lutein/Zeaxan [Preservision Areds 2 Softgel] 1 each PO BID 02/25/19 [History Confirmed 08/25/20] Bisacodyl 10 mg [Dulcolax 10 MG SUPP] 1 supp.rect RC DAILY PRN 08/25/20 [History Confirmed 08/25/20] Dextrose 4 gm Tablet [Dex4 Glucose 4 GM TABLET] 1 tab PO Q12H PRN PRN 08/25/20 [History Confirmed 08/25/20] Diclofenac Sodium Gel [Voltaren GEL] 4 g TOP BID PRN 08/25/20 [History Confirmed 08/25/20] Docusate Sodium 100 mg [Colace 100 MG] 100 mg PO BID 08/25/20 [History Confirmed 08/25/20] Donepezil HCl 5 mg PO QHS 08/25/20 [History Confirmed 08/25/20] Hydrocodone/APAP 5-325 Tab^^^ [[place] 5-325 Tablet^^^] 1 tab PO BID 08/25/20 [History Confirmed 08/25/20] Insulin Glargine,Hum.rec.anlog [Basaglar Kwikpen U-100] 60 units SQ QHS 08/25/20 [History Confirmed 08/25/20] Loperamide HCl 2 mg [Imodium 2 mg] 1 cap PO Q4H PRN 08/25/20 [History Confirmed 08/25/20] Metronidazole [Metrocream] 1 applic TOP QHS 08/25/20 [History Confirmed 08/25/20] Propylene Glycol [Systane Complete] 1 drop OT Q4H PRN 08/25/20 [History Confirmed 08/25/20] Allergies/Adverse Reactions: Allergies Allergy/AdvReac Type Severity Reaction Status Date / Time ciclopirox [From Loprox] Allergy Unknown Verified 08/25/20 00:22 ciclopirox olamine Allergy Unknown Verified 08/25/20 00:22 [From Loprox] morphine Allergy Unknown Verified 08/25/20 00:22 oxycodone [Oxycodone] Allergy Unknown Verified 08/25/20 00:22 Sulfa (Sulfonamide Allergy Unknown Verified 08/25/20 00:22 Antibiotics) [Sulfa(Sulfonamide Antibiotics)] Band-aid Allergy Unknown Uncoded 08/25/20 02:19 Pentazocine Lactate Allergy Unknown Uncoded 08/25/20 00:22 - Past Medical History Past Medical History: No Neurological History: Alzheimer's Disease, Dementia, Migraines, Stroke, TIA ENT History: No Pertinent History, Other Cardiac History: Arrhythmia, Congestive Heart Failure, Coronary Artery Disease, High Cholesterol, Hypertension, Peripheral Vascular Disease Respiratory History: No Pertinent History Endocrine Medical History: Diabetes Type II, Hypothyroidism Musculoskelatal History: No Pertinent History, Osteoporosis GI Medical History: No Pertinent History History: No Pertinent History Pyscho-Social History: Anxiety, Depression Reproductive Disorders: No Pertinent History Comment: chronic pain, atrophy, afib, aphasia, diabetic retinopathy with macular edema/degeneration, primary optic atrophy, insomnia - Female History Hx Last Menstrual Period: POST Are you now?: No - Past Surgical History Past Surgical History: No Neuro Surgical History: No Pertinent History Cardiac History: No Pertinent History Respiratory Surgery: No Pertinent History GI Surgical History: Appendectomy, Cholecystectomy Genitourinary Surgical Hx: No Pertinent History Musculskeletal Surgical Hx: No Pertinent History Female Surgical History: No Pertinent History - Social History Smoking Status: Never smoker Exposure to second hand smoke: No Alcohol: None Drug Use: none Significant Family History: heart disease, diabetes - Physical Exam Vital Signs: Vital Signs - 24 hr Temp Pulse Resp BP Pulse Ox 08/25/20 08:00 97.4 F 56 L 10 L 143/95 76 L 08/25/20 06:52 99 08/25/20 04:00 38 L 8 L 95 08/25/20 03:00 95 08/25/20 02:55 96.1 F 33 L 10 L 118/46 98 08/25/20 01:50 44 L 19 106/41 100 08/25/20 00:36 41 L 12 116/41 99 08/25/20 00:23 100 08/24/20 23:41 100 08/24/20 23:27 96.1 F 46 L 26 H 110/46 100 Oxygen-Last 24 hours Oxygen Flowrate (L/min)-RT 2 General Appearance: no apparent distress, obese Neurologic Exam: alert, cooperative Cardiovascular Exam: regular rate/rhythm, normal heart sounds, normal peripheral pulses Gastrointestinal/Abdomen Exam: soft, normal bowel sounds, tenderness (LLQ), No mass, No guarding, No rebound Extremity Exam: normal inspection, normal range of motion, pelvis stable Skin Exam: normal color, warm, dry, No rash Results - Labs Lab/Micro Results: Lab Results-Last 24 Hours 08/24/20 08/24/20 08/24/20 Range/Units 23:35 23:40 23:40 WBC 8.1 (4.0-10.5) K/mm3 RBC 3.86 L (4.1-5.4) M/mm3 Hgb 12.2 (12.0-16.0) gm/dl Hct 36.2 (35-47) % MCV 93.8 (78-100) fl MCH 31.6 (26-32) pg MCHC 33.7 (32-36) g/dl RDW 16.8 H (11.5-14.0) % Plt Count 163 (150-450) K/mm3 MPV 12.2 H (7.5-11.0) fl Gran % 59.3 (36.0-66.0) % Eos # (Auto) 0.09 (0-0.5) Absolute Lymphs (auto) 2.04 (1.0-4.6) Absolute Monos (auto) 1.14 (0.0-1.3) Lymphocytes % 25.3 (24.0-44.0) % Monocytes % 14.1 H (0.0-12.0) % Eosinophils % 1.1 (0.00-5.0) % Basophils % 0.2 (0.0-0.4) % Absolute Granulocytes 4.78 (1.4-6.9) Basophils # 0.02 (0-0.4) Sodium 139 (137-145) mmol/L Potassium 4.4 (3.5-5.1) mmol/L Chloride 106 (98-107) mmol/L Carbon Dioxide 26 (22-30) mmol/L Anion Gap 10.3 (5-15) MEQ/L BUN 52 H (7-17) mg/dL Creatinine 2.22 H (0.52-1.04) mg/dL Estimated GFR 22.2 ML/MIN Glucose 103 (74-106) mg/dL POC Glucometer (74 to 106) mg/dL Lactic Acid 1.6 (0.4-2.0) Calcium 10.1 (8.4-10.2) mg/dL Total Bilirubin 0.40 (0.2-1.3) mg/dL AST 22 (14-36) U/L ALT 10 (0-35) U/L Alkaline Phosphatase 95 (38-126) U/L Troponin I (0.000-0.034) ng/mL NT-Pro-B Natriuret Pep 1320 (0-1800) pg/mL Serum Total Protein 7.5 (6.3-8.2) g/dL Albumin 3.8 (3.5-5.0) g/dL Lipase (23-300) U/L Urine Color (YELLOW) Urine Appearance (CLEAR) Urine pH (5-6) Ur Specific [place] (1.005-1.025) Urine Protein (Negative) Urine Ketones (NEGATIVE) Urine Blood (0-5) Newton/ul Urine Nitrite (NEGATIVE) Urine Bilirubin (NEGATIVE) Urine Urobilinogen (0-1) mg/dL Ur Leukocyte Esterase (NEGATIVE) Urine WBC (Auto) (0-5) /HPF Urine RBC (Auto) (0-2) /HPF U Hyaline Cast (Auto) (0-2) /LPF U Epithel Cells (Auto) (FEW) /HPF Urine Bacteria (Auto) (NEGATIVE) /HPF Urine Mucus (Auto) (NEGATIVE) /HPF Urine Culture Reflexed (NO) Urine Glucose (NEGATIVE) mg/dL Slides for Path Review YES 08/24/20 08/24/20 08/24/20 Range/Units 23:40 23:41 23:41 WBC (4.0-10.5) K/mm3 RBC (4.1-5.4) M/mm3 Hgb (12.0-16.0) gm/dl Hct (35-47) % MCV (78-100) fl MCH (26-32) pg MCHC (32-36) g/dl RDW (11.5-14.0) % Plt Count (150-450) K/mm3 MPV (7.5-11.0) fl Gran % (36.0-66.0) % Eos # (Auto) (0-0.5) Absolute Lymphs (auto) (1.0-4.6) Absolute Monos (auto) (0.0-1.3) Lymphocytes % (24.0-44.0) % Monocytes % (0.0-12.0) % Eosinophils % (0.00-5.0) % Basophils % (0.0-0.4) % Absolute Granulocytes (1.4-6.9) Basophils # (0-0.4) Sodium (137-145) mmol/L Potassium (3.5-5.1) mmol/L Chloride (98-107) mmol/L Carbon Dioxide (22-30) mmol/L Anion Gap (5-15) MEQ/L BUN (7-17) mg/dL Creatinine (0.52-1.04) mg/dL Estimated GFR ML/MIN Glucose (74-106) mg/dL POC Glucometer (74 to 106) mg/dL Lactic Acid (0.4-2.0) Calcium (8.4-10.2) mg/dL Total Bilirubin (0.2-1.3) mg/dL AST (14-36) U/L ALT (0-35) U/L Alkaline Phosphatase (38-126) U/L Troponin I 0.015 (0.000-0.034) ng/mL NT-Pro-B Natriuret Pep (0-1800) pg/mL Serum Total Protein (6.3-8.2) g/dL Albumin (3.5-5.0) g/dL Lipase 80 (23-300) U/L Urine Color YELLOW (YELLOW) Urine Appearance CLOUDY (CLEAR) Urine pH 5.0 (5-6) Ur Specific [place] 1.013 (1.005-1.025) Urine Protein NEGATIVE (Negative) Urine Ketones NEGATIVE (NEGATIVE) Urine Blood NEGATIVE (0-5) Newton/ul Urine Nitrite NEGATIVE (NEGATIVE) Urine Bilirubin NEGATIVE (NEGATIVE) Urine Urobilinogen NEGATIVE (0-1) mg/dL Ur Leukocyte Esterase LARGE (NEGATIVE) Urine WBC (Auto) 51-100 (0-5) /HPF Urine RBC (Auto) 0-2 (0-2) /HPF U Hyaline Cast (Auto) 0-2 (0-2) /LPF U Epithel Cells (Auto) NONE (FEW) /HPF Urine Bacteria (Auto) MODERATE (NEGATIVE) /HPF Urine Mucus (Auto) SLIGHT (NEGATIVE) /HPF Urine Culture Reflexed ORDERED SEPARATELY (NO) Urine Glucose NEGATIVE (NEGATIVE) mg/dL Slides for Path Review 08/25/20 08/25/20 Range/Units 02:30 04:17 WBC (4.0-10.5) K/mm3 RBC (4.1-5.4) M/mm3 Hgb (12.0-16.0) gm/dl Hct (35-47) % MCV (78-100) fl MCH (26-32) pg MCHC (32-36) g/dl RDW (11.5-14.0) % Plt Count (150-450) K/mm3 MPV (7.5-11.0) fl Gran % (36.0-66.0) % Eos # (Auto) (0-0.5) Absolute Lymphs (auto) (1.0-4.6) Absolute Monos (auto) (0.0-1.3) Lymphocytes % (24.0-44.0) % Monocytes % (0.0-12.0) % Eosinophils % (0.00-5.0) % Basophils % (0.0-0.4) % Absolute Granulocytes (1.4-6.9) Basophils # (0-0.4) Sodium (137-145) mmol/L Potassium (3.5-5.1) mmol/L Chloride (98-107) mmol/L Carbon Dioxide (22-30) mmol/L Anion Gap (5-15) MEQ/L BUN (7-17) mg/dL Creatinine (0.52-1.04) mg/dL Estimated GFR ML/MIN Glucose (74-106) mg/dL POC Glucometer 141 H (74 to 106) mg/dL Lactic Acid (0.4-2.0) Calcium (8.4-10.2) mg/dL Total Bilirubin (0.2-1.3) mg/dL AST (14-36) U/L ALT (0-35) U/L Alkaline Phosphatase (38-126) U/L Troponin I 0.017 (0.000-0.034) ng/mL NT-Pro-B Natriuret Pep (0-1800) pg/mL Serum Total Protein (6.3-8.2) g/dL Albumin (3.5-5.0) g/dL Lipase (23-300) U/L Urine Color (YELLOW) Urine Appearance (CLEAR) Urine pH (5-6) Ur Specific [place] (1.005-1.025) Urine Protein (Negative) Urine Ketones (NEGATIVE) Urine Blood (0-5) Newton/ul Urine Nitrite (NEGATIVE) Urine Bilirubin (NEGATIVE) Urine Urobilinogen (0-1) mg/dL Ur Leukocyte Esterase (NEGATIVE) Urine WBC (Auto) (0-5) /HPF Urine RBC (Auto) (0-2) /HPF U Hyaline Cast (Auto) (0-2) /LPF U Epithel Cells (Auto) (FEW) /HPF Urine Bacteria (Auto) (NEGATIVE) /HPF Urine Mucus (Auto) (NEGATIVE) /HPF Urine Culture Reflexed (NO) Urine Glucose (NEGATIVE) mg/dL Slides for Path Review - Radiology Impressions Radiology Exams & Impressions: Radiology Procedures Category Date Time Status CHEST 1 VIEW (PORTABLE) Stat Exams 08/24/20 23:58 Completed HEAD WITHOUT CONTRAST [CT] Stat Exams 08/24/20 23:29 Completed - Other Procedures and Tests Respiratory Therapy 08/25/20 06:52 Oxygen NASAL CANNULA 2 lpm Assessment/Plan (1) Acute diverticulitis Current Visit: Yes Status: Acute Assessment & Plan: c/o pain, tenderness in LLQ, will treat with rocephin and flagyl emperically. family does not wish for invasive testing, actually they are requesting no blood draws along with the patient so will not pursue imaging due to this request. code status DNR but advised will give IV hydration and antibiotics and monitor for response, family agrees. Code(s): K57.92 - DVTRCLI OF INTEST, PART UNSP, W/O PERF OR ABSCESS W/O BLEED (2) Salif-ua-kxuzhob renal failure Current Visit: Yes Status: Acute Assessment & Plan: discussed need to periodically check lytes and renal function for treatment response but will minimize blood draws per patient and family request, they agree after discussion. Code(s): N17.9 - ACUTE KIDNEY FAILURE, UNSPECIFIED; N18.9 - CHRONIC KIDNEY DISEASE, UNSPECIFIED (3) UTI (urinary tract infection) Current Visit: Yes Status: Acute Onset Date: ~02/11/18 Assessment & Plan: culture pending, on rocephin Code(s): N39.0 - URINARY TRACT INFECTION, SITE NOT SPECIFIED
[2020-08-25] MEDS ORDERED: Zithromax 500 MG/ 250 ML NaCl Premix 500 MG/250 ML IVPB IV SCH (10:00)
[2020-08-25] MEDS: Dextrose 5% -0.45 NaCl 1000 ML 1,000 ML IV SCH ×2 (10:54→20:35)
[2020-08-25] MEDS: ROCEPHIN 1 Gm-D5w 50 ml Bag** 1 G/50 ML IVPB IV SCH (10:55)
[2020-08-25] MEDS ORDERED: TYLENOL 325 MG PO PRN (10:57)
[2020-08-25] MEDS ORDERED: PROPYLENE GLYCOL OT PRN (10:57)
[2020-08-25] MEDS ORDERED: Cardizem CD 120 MG PO SCH (11:00)
[2020-08-25] MEDS ORDERED: Artificial Tears 15 ML OP PRN (11:07)
[2020-08-25] MEDS: FLAGYL 500 MG IVPB 500 MG/100 ML BAG IV SCH ×3 (12:55→23:29)
[2020-08-25] MEDS: NORCO 5/325 MG PO SCH ×3 (13:54→20:34)
[2020-08-25] MEDS: Colace 100 MG PO SCH ×2 (13:54→20:35)
[2020-08-25] MEDS: Zestril 5 MG PO SCH (13:55)
[2020-08-25] MEDS: SYNTHROID 100 MCG PO SCH (13:55)
[2020-08-25] MEDS: SUBLIMAZE 100 MCG/2 ML IV PRN (21:11)
[2020-08-25] MEDS ORDERED: NON-FORMULARY ITEM (Hydrocodone/Apap 5-325 Tab^^^ 1 TAB) PO SCH (22:00)
[2020-08-26] MEDS: SUBLIMAZE 100 MCG/2 ML IV PRN ×3 (03:41→15:14)
[2020-08-26] MEDS: FLAGYL 500 MG IVPB 500 MG/100 ML BAG IV SCH ×3 (05:30→17:11)
[2020-08-26 05:52] LABS: Absolute Neutrophil Ct (ANC) 4.16 (1.4-6.9); BASOPHIL % 0.6 % (0.0-0.4); Basophil (Absolute #) 0.04 (0-0.4); Eosinophil % 1.2 % (0.00-5.0); Eosinophil (Absolute #) 0.09 (0-0.5); Hematocrit 34.8 % (35-47); Hemoglobin 10.7 gm/dl (12.0-16.0); Lymphocyte (Absolute #) 1.86 (1.0-4.6); Lymphocytes % 25.7 % (24.0-44.0); Mean Cell Volume 94.6 fl (78-100); Mean Corpuscular Hemoglobin 29.1 pg (26-32); Mean Corpuscular Hgb Concent. 30.7 g/dl (32-36); Mean Platelet Volume 12.9 fl (7.5-11.0); Monocyte (Absolute #) 1.08 (0.0-1.3); Monocytes % 14.9 % (0.0-12.0); Neutrophil % 57.6 % (36.0-66.0); Platelet Count 140 K/mm3 (150-450); Red Blood Count 3.68 M/mm3 (4.1-5.4); Red Cell Distribution Width 16.9 % (11.5-14.0); White Blood Count 7.2 K/mm3 (4.0-10.5)
[2020-08-26] MEDS ORDERED: SUBLIMAZE 100 MCG/2 ML IV PRN (06:15)
[2020-08-26 06:17] LABS: ANION GAP 16.8 MEQ/L (5-15); Calcium 9.2 mg/dL (8.4-10.2); Creatinine 1 3.17 mg/dL (0.52-1.04); EST GLOMERULAR FILTRATION RATE 14.7 ML/MIN; MAGNESIUM 2.7 mg/dL (1.6-2.3)
[2020-08-26 06:36] LABS: Potassium 5.5 mmol/L (3.5-5.1)
--- NOTE | 2020-08-26 08:14 | PCM.NOTE ---
Date and Time: 08/26/20811 Subjective Assessment: patient has been bradycardic with HR in the 20's to 30's, requiring fentanyl for chest pain. she is able to answer questions, has not received cardizem since admission due to HR Objective Exam General Appearance: mild distress Neurologic Exam: alert, cooperative Respiratory Exam: normal breath sounds, lungs clear, No respiratory distress Cardiovascular Exam: bradycardia Gastrointestinal/Abdomen Exam: soft, No tenderness, No mass Extremity Exam: normal inspection, normal range of motion OBJECTIVE DATA Vital Signs: Vital Signs - 24 hr Temp Pulse Resp BP Pulse Ox 08/26/20 07:53 98.1 F 32 L 24 105/51 99 08/26/20 06:36 96 08/26/20 04:00 98.4 F 29 L 17 115/62 88 L 08/26/20 00:00 98.4 F 31 L 16 118/77 94 L 08/25/20 20:00 98.8 F 40 L 12 112/32 90 L 08/25/20 19:00 99 08/25/20 16:00 49 L 11 L 08/25/20 11:48 99.2 F 76 14 130/63 95 Pain Assessment - Last Documented Pain Intensity 10 Pain Scale Used 0-10 Pain Scale Intake and Output: Intake & Output 08/23/20 08/24/20 08/25/20 08/26/20 11:59 11:59 11:59 11:59 Intake Total 553 1890 Output Total 230 100 Balance 323 1790 Weight 88.8 kg Lab Results: Lab Results-Last 24 Hours 08/25/20 08/25/20 08/26/20 Range/Units 11:32 17:16 00:04 WBC (4.0-10.5) K/mm3 RBC (4.1-5.4) M/mm3 Hgb (12.0-16.0) gm/dl Hct (35-47) % MCV (78-100) fl MCH (26-32) pg MCHC (32-36) g/dl RDW (11.5-14.0) % Plt Count (150-450) K/mm3 MPV (7.5-11.0) fl Gran % (36.0-66.0) % Eos # (Auto) (0-0.5) Absolute Lymphs (auto) (1.0-4.6) Absolute Monos (auto) (0.0-1.3) Lymphocytes % (24.0-44.0) % Monocytes % (0.0-12.0) % Eosinophils % (0.00-5.0) % Basophils % (0.0-0.4) % Absolute Granulocytes (1.4-6.9) Basophils # (0-0.4) Sodium (137-145) mmol/L Potassium (3.5-5.1) mmol/L Chloride (98-107) mmol/L Carbon Dioxide (22-30) mmol/L Anion Gap (5-15) MEQ/L BUN (7-17) mg/dL Creatinine (0.52-1.04) mg/dL Estimated GFR ML/MIN Glucose (74-106) mg/dL POC Glucometer 191 H 270 H 327 H (74 to 106) mg/dL Calcium (8.4-10.2) mg/dL Magnesium (1.6-2.3) mg/dL 08/26/20 08/26/20 Range/Units 04:58 04:58 WBC 7.2 (4.0-10.5) K/mm3 RBC 3.68 L (4.1-5.4) M/mm3 Hgb 10.7 L (12.0-16.0) gm/dl Hct 34.8 L (35-47) % MCV 94.6 (78-100) fl MCH 29.1 (26-32) pg MCHC 30.7 L (32-36) g/dl RDW 16.9 H (11.5-14.0) % Plt Count 140 L (150-450) K/mm3 MPV 12.9 H (7.5-11.0) fl Gran % 57.6 (36.0-66.0) % Eos # (Auto) 0.09 (0-0.5) Absolute Lymphs (auto) 1.86 (1.0-4.6) Absolute Monos (auto) 1.08 (0.0-1.3) Lymphocytes % 25.7 (24.0-44.0) % Monocytes % 14.9 H (0.0-12.0) % Eosinophils % 1.2 (0.00-5.0) % Basophils % 0.6 (0.0-0.4) % Absolute Granulocytes 4.16 (1.4-6.9) Basophils # 0.04 (0-0.4) Sodium 132 L D (137-145) mmol/L Potassium 5.5 H D (3.5-5.1) mmol/L Chloride 102 (98-107) mmol/L Carbon Dioxide 19 L (22-30) mmol/L Anion Gap 16.8 H (5-15) MEQ/L BUN 60 H (7-17) mg/dL Creatinine 3.17 H (0.52-1.04) mg/dL Estimated GFR 14.7 ML/MIN Glucose 290 H (74-106) mg/dL POC Glucometer (74 to 106) mg/dL Calcium 9.2 (8.4-10.2) mg/dL Magnesium 2.7 H (1.6-2.3) mg/dL Radiology Exams: Radiology Procedures Category Date Time Status CHEST 1 VIEW (PORTABLE) Stat Exams 08/24/20 23:58 Completed HEAD WITHOUT CONTRAST [CT] Stat Exams 08/24/20 23:29 Completed Assessment/Plan (1) Bradycardia Current Visit: Yes Status: Acute Assessment & Plan: d/c cardizem, family and patient do not wish for transfer or invasive intervention such as pacemaker etc. supportive care at this time. will try atropine 0.5mg IV to see if responds Code(s): R00.1 - BRADYCARDIA, UNSPECIFIED (2) Acute diverticulitis Current Visit: Yes Status: Acute Code(s): K57.92 - DVTRCLI OF INTEST, PART UNSP, W/O PERF OR ABSCESS W/O BLEED (3) Qzdnz-yz-wctodtm renal failure Current Visit: Yes Status: Acute Assessment & Plan: cr increased, likely cardiorenal from bradycardia Code(s): N17.9 - ACUTE KIDNEY FAILURE, UNSPECIFIED; N18.9 - CHRONIC KIDNEY DISEASE, UNSPECIFIED (4) UTI (urinary tract infection) Current Visit: Yes Status: Acute Onset Date: ~02/11/18 Code(s): N39.0 - URINARY TRACT INFECTION, SITE NOT SPECIFIED
[2020-08-26] MEDS ORDERED: ATROPINE SULFATE 1MG IV ONE (08:30)
[2020-08-26] MEDS: Colace 100 MG PO SCH ×2 (10:54→21:43)
[2020-08-26] MEDS: ROCEPHIN 1 Gm-D5w 50 ml Bag** 1 G/50 ML IVPB IV SCH (10:54)
[2020-08-26] MEDS: NYSTOP POWDER 15 GM TP SCH ×2 (10:54→21:43)
[2020-08-26] MEDS: Zestril 5 MG PO SCH ×2 (10:55→11:05)
[2020-08-26] MEDS: SYNTHROID 100 MCG PO SCH (10:55)
[2020-08-26] MEDS: NORCO 5/325 MG PO SCH ×2 (10:55→21:43)
[2020-08-26] MEDS: Zofran 4 MG/2 ML VIAL IV PRN (12:26)
[2020-08-26] MEDS: XARELTO 10 MG TABLET PO SCH (17:11)
[2020-08-27] MEDS: FLAGYL 500 MG IVPB 500 MG/100 ML BAG IV SCH ×2 (00:28→05:23)
[2020-08-27 01:29] LABS: 027 TOX PROD PRESUMPTIVE NEGATIVE (NEGATIVE); TOXIGENIC C. DIFF ORG NEGATIVE (NEGATIVE)
[2020-08-27] MEDS: SUBLIMAZE 100 MCG/2 ML IV PRN ×4 (05:23→17:24)
--- NOTE | 2020-08-27 08:06 | PCM.NOTE ---
Date and Time: 08/27/20 0804 Subjective Assessment: patient is alert, oriented and answering questions well this morning. states she rested well overnight and is feeling better, just feels fatigued but otherwise no specific complaints today Objective Exam General Appearance: no apparent distress, obese Skin Exam: normal color, warm, dry Respiratory Exam: normal breath sounds, lungs clear, No respiratory distress Cardiovascular Exam: regular rate/rhythm, normal heart sounds Gastrointestinal/Abdomen Exam: soft, No tenderness, No mass OBJECTIVE DATA Vital Signs: Vital Signs - 24 hr Temp Pulse Resp BP Pulse Ox 08/27/20 07:18 97.9 F 35 L 16 110/50 98 08/27/20 03:59 97.5 F 32 L 16 112/38 97 08/27/20 00:38 16 08/27/20 00:00 97.8 F 50 L 16 95 08/26/20 21:59 120/64 08/26/20 20:44 91 L 08/26/20 19:00 97.8 F 56 L 17 91 L 08/26/20 15:00 97.2 F 42 L 18 129/94 100 08/26/20 11:52 98.1 F 37 L 16 110/58 99 Pain Assessment - Last Documented Pain Intensity 0 Pain Scale Used 0-10 Pain Scale Intake and Output: Intake & Output 08/24/20 08/25/20 08/26/20 08/27/20 11:59 11:59 11:59 11:59 Intake Total 553 1890 2428 Output Total 230 100 300 Balance 323 1790 2128 Weight 88.8 kg 88.8 kg Lab Results: Lab Results-Last 24 Hours 08/26/20 08/26/20 08/26/20 Range/Units 11:40 16:38 20:36 POC Glucometer 302 H 279 H 310 H (74 to 106) mg/dL C. difficile Screen (NEGATIVE) C.difficile [id number]-[id number] (NEGATIVE) 08/27/20 08/27/20 08/27/20 Range/Units 00:00 05:16 06:53 POC Glucometer 284 H 257 H (74 to 106) mg/dL C. difficile Screen NEGATIVE (NEGATIVE) C.difficile [id number] PRESUMPTIVE NEGATIVE (NEGATIVE) Multi-Disciplinary Progress Notes: Multi-Disciplinary Progress Notes 08/27/20 07:49 Case Management Note by Richelle Campbell NEEDS REVIEWED, PLAN TO RETURN TO [facility]. Initialized on 08/27/20 07:49 - END OF NOTE 08/26/20 11:07 Case Management Note by Kristina Mejia NO CHANGE IN DC PLANS AT THIS TIME Initialized on 08/26/20 11:07 - END OF NOTE Assessment/Plan (1) UTI (urinary tract infection) Current Visit: Yes Status: Acute Onset Date: ~02/11/18 Assessment & Plan: e coli sens to rocephin, continue. improved clinical status Code(s): N39.0 - URINARY TRACT INFECTION, SITE NOT SPECIFIED (2) Bradycardia Current Visit: Yes Status: Acute Assessment & Plan: stable but patient is alert and conversant and appears clinically improved Code(s): R00.1 - BRADYCARDIA, UNSPECIFIED (3) Acute diverticulitis Current Visit: Yes Status: Acute Assessment & Plan: no pain in abdomen, soft and will d/c flagyl at this time. continue rocephin Code(s): K57.92 - DVTRCLI OF INTEST, PART UNSP, W/O PERF OR ABSCESS W/O BLEED (4) Wukop-as-hdugeqc renal failure Current Visit: Yes Status: Acute Code(s): N17.9 - ACUTE KIDNEY FAILURE, UNSPECIFIED; N18.9 - CHRONIC KIDNEY DISEASE, UNSPECIFIED
[2020-08-27] MEDS: ROCEPHIN 1 Gm-D5w 50 ml Bag** 1 G/50 ML IVPB IV SCH (10:13)
[2020-08-27] MEDS: NORCO 5/325 MG PO SCH ×2 (10:13→21:27)
[2020-08-27] MEDS: Colace 100 MG PO SCH ×2 (10:14→21:19)
[2020-08-27] MEDS: Zestril 5 MG PO SCH (10:14)
[2020-08-27] MEDS: SYNTHROID 100 MCG PO SCH (10:16)
[2020-08-27] MEDS: NYSTOP POWDER 15 GM TP SCH ×2 (10:17→21:29)
[2020-08-27] MEDS ORDERED: HUMALOG SQ PRN (13:22)
[2020-08-27] MEDS: Zofran 4 MG/2 ML VIAL IV PRN (17:24)
[2020-08-27] MEDS: XARELTO 10 MG TABLET PO SCH (17:43)
[2020-08-28 06:04] LABS: Absolute Neutrophil Ct (ANC) 4.48 (1.4-6.9); BASOPHIL % 0.5 % (0.0-0.4); Basophil (Absolute #) 0.04 (0-0.4); Eosinophil % 3.5 % (0.00-5.0); Eosinophil (Absolute #) 0.27 (0-0.5); Hematocrit 33.6 % (35-47); Hemoglobin 10.8 gm/dl (12.0-16.0); Lymphocyte (Absolute #) 1.84 (1.0-4.6); Lymphocytes % 24.1 % (24.0-44.0); Mean Cell Volume 91.8 fl (78-100); Mean Corpuscular Hemoglobin 29.5 pg (26-32); Mean Corpuscular Hgb Concent. 32.1 g/dl (32-36); Mean Platelet Volume 12.5 fl (7.5-11.0); Monocytes % 13.1 % (0.0-12.0); Neutrophil % 58.8 % (36.0-66.0); Platelet Count 140 K/mm3 (150-450); Red Blood Count 3.66 M/mm3 (4.1-5.4); Red Cell Distribution Width 16.4 % (11.5-14.0); White Blood Count 7.6 K/mm3 (4.0-10.5)
[2020-08-28 06:20] LABS: ANION GAP 15.9 MEQ/L (5-15); Calcium 9.2 mg/dL (8.4-10.2); Creatinine 1 2.95 mg/dL (0.52-1.04); Potassium 4.8 mmol/L (3.5-5.1)
[2020-08-28 07:49] VITALS: BP 114/51; PULSE 37; O2SAT 93
--- NOTE | 2020-08-28 08:28 | PCM.DS ---
Discharge Summary Date of Admission: 08/25/20 02:01 Admitting Physician: SAL DIAS Primary Care Provider: PEREZ Allergies Allergies ciclopirox [From Loprox] Allergy (Unknown, Verified 08/25/20 00:22) ciclopirox olamine [From Loprox] Allergy (Unknown, Verified 08/25/20 00:22) morphine Allergy (Unknown, Verified 08/25/20 00:22) oxycodone [Oxycodone] Allergy (Unknown, Verified 08/25/20 00:22) Sulfa (Sulfonamide Antibiotics) [Sulfa(Sulfonamide Antibiotics)] Allergy (Unknown, Verified 08/25/20 00:22) Band-aid Allergy (Unknown, Uncoded 08/25/20 02:19) verified Pentazocine Lactate Allergy (Unknown, Uncoded 08/25/20 00:22) Hospital Summary - Hospital Course Hospital Course: patient was admitted with altered mental status, UTI and has had bradycardia but relatively no symptoms. her cardizem has been held, her renal function has improved slightly. she is conversant and tolerating po intake, her son and the patient wish for no aggressive intervention, no pacemaker, in fact they didn't even want her blood drawn in the hospital. to this point, will send back to [facility] on oral antibiotics, hold cardizem and focus on comfort measures. code status DN R - Vitals & Intake/Output Vital Signs: Vital Signs Temperature 96.5 F 08/28/20 07:48 Pulse Rate 37 L 08/28/20 07:48 Respiratory Rate 16 08/28/20 07:48 Blood Pressure 114/51 08/28/20 07:48 O2 Sat by Pulse Oximetry 93 L 08/28/20 07:48 Intake & Output: Intake & Output 08/25/20 08/26/20 08/27/20 08/28/20 11:59 11:59 11:59 11:59 Intake Total 553 1890 2428 4801 Output Total 230 100 300 550 Balance 323 1790 2128 4251 Weight 88.8 kg 88.8 kg - Lab Result Diagrams: 08/28/20 05:45 08/28/20 05:45 Lab Results-Last 24 Hrs: Lab Results-Last 24 Hours 08/27/20 08/27/20 08/27/20 Range/Units 11:09 16:32 20:30 WBC (4.0-10.5) K/mm3 RBC (4.1-5.4) M/mm3 Hgb (12.0-16.0) gm/dl Hct (35-47) % MCV (78-100) fl MCH (26-32) pg MCHC (32-36) g/dl RDW (11.5-14.0) % Plt Count (150-450) K/mm3 MPV (7.5-11.0) fl Gran % (36.0-66.0) % Eos # (Auto) (0-0.5) Absolute Lymphs (auto) (1.0-4.6) Absolute Monos (auto) (0.0-1.3) Lymphocytes % (24.0-44.0) % Monocytes % (0.0-12.0) % Eosinophils % (0.00-5.0) % Basophils % (0.0-0.4) % Absolute Granulocytes (1.4-6.9) Basophils # (0-0.4) Sodium (137-145) mmol/L Potassium (3.5-5.1) mmol/L Chloride (98-107) mmol/L Carbon Dioxide (22-30) mmol/L Anion Gap (5-15) MEQ/L BUN (7-17) mg/dL Creatinine (0.52-1.04) mg/dL Estimated GFR ML/MIN Glucose (74-106) mg/dL POC Glucometer 293 H 296 H 260 H (74 to 106) mg/dL Calcium (8.4-10.2) mg/dL 08/28/20 08/28/20 08/28/20 Range/Units 05:45 05:45 06:49 WBC 7.6 (4.0-10.5) K/mm3 RBC 3.66 L (4.1-5.4) M/mm3 Hgb 10.8 L (12.0-16.0) gm/dl Hct 33.6 L (35-47) % MCV 91.8 (78-100) fl MCH 29.5 (26-32) pg MCHC 32.1 (32-36) g/dl RDW 16.4 H (11.5-14.0) % Plt Count 140 L (150-450) K/mm3 MPV 12.5 H (7.5-11.0) fl Gran % 58.8 (36.0-66.0) % Eos # (Auto) 0.27 (0-0.5) Absolute Lymphs (auto) 1.84 (1.0-4.6) Absolute Monos (auto) 1.00 (0.0-1.3) Lymphocytes % 24.1 (24.0-44.0) % Monocytes % 13.1 H (0.0-12.0) % Eosinophils % 3.5 (0.00-5.0) % Basophils % 0.5 (0.0-0.4) % Absolute Granulocytes 4.48 (1.4-6.9) Basophils # 0.04 (0-0.4) Sodium 130 L (137-145) mmol/L Potassium 4.8 (3.5-5.1) mmol/L Chloride 99 (98-107) mmol/L Carbon Dioxide 19 L (22-30) mmol/L Anion Gap 15.9 H (5-15) MEQ/L BUN 69 H (7-17) mg/dL Creatinine 2.95 H (0.52-1.04) mg/dL Estimated GFR 16.0 ML/MIN Glucose 173 H (74-106) mg/dL POC Glucometer 146 H (74 to 106) mg/dL Calcium 9.2 (8.4-10.2) mg/dL Micro Results-Entire Visit: Microbiology 08/24/20 23:41 Urine Culture - Final Urine, Indwelling Catheter Escherichia Coli Accuchecks Date 08/28/20 Date 08/27/20 Time 07:30 Time 16:30 - Procedures and Test Procedures and Tests throughout Hospitalization: Therapy Orders & Screens 08/25/20 03:29 ST Screen per Nursing Assess ONCE Comment: Protocol Order Physician Instructions: Greater than [address] Admission Screening Reason For Exam: Triggered on Admission Diagnosis: UTI CVA/Dyshpagia/Aphasia: No Cognitive Deficits: Yes Dehydration/Nutrition Deficit: No Reflux: No Oral-Motor Difficulties: No Pneumonia: No [facility] Resident: Yes Total Points: 8 08/25/20 06:52 Oxygen NASAL CANNULA 2 lpm Comment: Diagnosis: UTI Discharge Exam General Appearance: no apparent distress, obese Neurologic Exam: alert, cooperative Respiratory Exam: normal breath sounds, lungs clear, No respiratory distress Cardiovascular Exam: regular rate/rhythm, normal heart sounds Gastrointestinal/Abdomen Exam: soft, No tenderness, No mass Final Diagnosis/Problem List - Final Discharge Diagnosis/Problem (1) UTI (urinary tract infection) Current Visit: Yes Status: Acute Onset Date: ~02/11/18 Code(s): N39.0 - URINARY TRACT INFECTION, SITE NOT SPECIFIED (2) Bradycardia Current Visit: Yes Status: Acute Code(s): R00.1 - BRADYCARDIA, UNSPECIFIED (3) Acute diverticulitis Current Visit: Yes Status: Acute Code(s): K57.92 - DVTRCLI OF INTEST, PART UNSP, W/O PERF OR ABSCESS W/O BLEED (4) [id number]-eu-ewrrozk renal failure Current Visit: Yes Status: Acute Code(s): N17.9 - ACUTE KIDNEY FAILURE, UNSPECIFIED; N18.9 - CHRONIC KIDNEY DISEASE, UNSPECIFIED - Discharge Disposition: Skilled Care @ [facility] Condition: Stable Prescriptions: New Nystatin Powder 15 gm [Nystop Powder 15 gm] 1 gm TP BID #1 powder Cefpodoxime Proxetil 200 mg [Vantin 200 mg] 200 mg PO BID #14 tablet Continue Calcium Carbonate/Vitamin D3 [Calcium 600-Vit D3 200 Tablet] 1 tab PO BID Magnesium Oxide 400 mg [Mag-Ox 400] 400 mg PO DAILY Nitroglycerin 0.4 mg Tablet [Nitrostat 0.4 MG Tablet] 0.4 mg SL Q5MIN PRN MR X 3 PRN PRN Reason: Chest Pain Acetaminophen 325 mg [Tylenol 325 mg] 650 mg PO Q4HPRN PRN PRN Reason: Pain And/Or Fever Ondansetron HCl [Zofran] 4 mg PO Q6HPRN PRN PRN Reason: Nausea Levothyroxine Sodium 100 Mcg [Synthroid 100 Mcg] 100 mcg PO DAILY Magnesium Hydroxide 30 ml [Milk of Magnesia 30 ml] 30 ml PO DAILY PRN PRN PRN Reason: Constipation Melatonin/Pyridoxine HCl (B6) [Melatonin 3 mg Tablet] 1 tab PO HS Memantine HCl [Namenda] 10 mg PO BID Lisinopril 5 mg [Zestril 5 MG] 2.5 mg PO DAILY Vit C/E/Zn/Coppr/Lutein/Zeaxan [Preservision Areds 2 Softgel] 1 each PO BID Rivaroxaban 10 mg Tablet [Xarelto 10 mg Tablet] 10 mg PO DAILY Insulin Lispro [Humalog] 20 unit SQ TIDWMEALS Donepezil HCl 5 mg PO QHS Docusate Sodium 100 mg [Colace 100 MG] 100 mg PO BID Hydrocodone/APAP 5-325 Tab^^^ [Moulton 5-325 Tablet^^^] 1 tab PO BID Bisacodyl 10 mg [Dulcolax 10 MG SUPP] 1 supp.rect RC DAILY PRN PRN Reason: Constipation Dextrose 4 gm Tablet [Dex4 Glucose 4 GM TABLET] 1 tab PO Q12H PRN PRN PRN Reason: Hypoglycemia Diclofenac Sodium Gel [Voltaren GEL] 4 g TOP BID PRN PRN Reason: Pain Insulin Glargine,Hum.rec.anlog [Basaglar Kwikpen U-100] 60 units SQ QHS Loperamide HCl 2 mg [Imodium 2 mg] 1 cap PO Q4H PRN PRN Reason: Diarrhea Propylene Glycol [Systane Complete] 1 drop OT Q4H PRN PRN Reason: Redness/Irritation Metronidazole [Metrocream] 1 applic TOP QHS #0 Discontinued Furosemide 40 mg [Lasix 40 MG] 40 mg PO BID Simvastatin [Zocor] 10 mg PO HS Potassium Chloride [K-Dur] 10 meq PO DAILY Aspirin 81 mg PO DAILY dilTIAZem HCl [Diltiazem 24Hr ER (Cd)] 120 mg PO DAILY #30 cap.er.24h Follow up with: SHWETA DAMICO [Primary Care Provider] -
[2020-08-28] MEDS: Zestril 5 MG PO SCH (09:59)
[2020-08-28] MEDS: NORCO 5/325 MG PO SCH (09:59)
[2020-08-28] MEDS: SYNTHROID 100 MCG PO SCH (09:59)
[2020-08-28] MEDS: Colace 100 MG PO SCH (09:59)
[2020-08-28] MEDS: ROCEPHIN 1 Gm-D5w 50 ml Bag** 1 G/50 ML IVPB IV SCH (09:59)
[2020-08-28] MEDS: NYSTOP POWDER 15 GM TP SCH (10:00)
== END 2020-08-28 10:14 | DRG 690 ==
LOC: ED 23:26 → MED SURG 08-25 02:01
PROVIDERS: ADMIT Family Medicine; ATTEND Family Medicine
DX: N39.0 Urinary tract infection, site not specified (principal); K57.92 Diverticulitis of intestine, part unspecified, without perforation or abscess without bleeding; N17.9 Acute kidney failure, unspecified; I13.0 Hypertensive heart and chronic kidney disease with heart failure and stage 1 through stage 4 chronic kidney disease, or unspecified chronic kidney disease; E11.22 Type 2 diabetes mellitus with diabetic chronic kidney disease; I13.10 Hypertensive heart and chronic kidney disease without heart failure, with stage 1 through stage 4 chronic kidney disease, or unspecified chronic kidney disease; R00.1 Bradycardia, unspecified; Z79.4 Long term (current) use of insulin; N18.9 Chronic kidney disease, unspecified; R07.9 Chest pain, unspecified; E78.00 Pure hypercholesterolemia, unspecified; E03.9 Hypothyroidism, unspecified; E11.311 Type 2 diabetes mellitus with unspecified diabetic retinopathy with macular edema; Z86.73 Personal history of transient ischemic attack (TIA), and cerebral infarction without residual deficits; Z79.899 Other long term (current) drug therapy
CPT/HCPCS: 36000; 36415; 51702; 70450; 71045; 80048; 80053; 81001; 82947; 83605; 83690; 83735; 83880; 84484; 85025; 87077; 87086; 87186; 87493; 93005; 93041; 94760; 94762; 96365; 96367; 96368; 99284; 99291; J0461; J0696; J1817; J2405; J2543; J3010; A9270-GY; J3370